=== PATIENT | male | born 1960 | race Caucasian/White ===

== ENCOUNTER → 2018-09-24 | Outpatient (CLI) | payer MEDICAID ==
--- NOTE | 2018-09-24 08:48 | REP ---
CT of the left shoulder: Axial images are acquired helical scanning and a reformatted sagittal and coronal projections: There are no comparisons. There is an impacted fracture at the surgical neck of the humerus with the approximately one fourth shaft width lateral displacement of the humeral head and lateral rotation of the humeral head. There is no dislocation. No clavicle or scapular fracture is identified. There is no coracoid fracture. No fracture. The visualized adjacent ribs. Impression: Impacted fracture at the surgical neck of the humerus as described. Electronically Signed by Carroll Kessler MD 09/24/2018 08:40 A
== END ==
LOC: M RAD 08:08
PROVIDERS: ATTEND Orthopaedic Surgery
DX: S42.222A 2-part displaced fracture of surgical neck of left humerus, initial encounter for closed fracture (principal); X58.XXXA Exposure to other specified factors, initial encounter; Y92.89 Other specified places as the place of occurrence of the external cause

== ENCOUNTER → 2018-10-24 | Outpatient (REF) | payer MEDICAID ==
[2018-10-24 12:42] LABS: APPEARANCE, URINE CLEAR (CLEAR); BACTERIA, URINE AUTO NEGATIVE (NEGATIVE); BILIRUBIN, URINE AUTO NEGATIVE (NEGATIVE); BLOOD, URINE BLOOD NEGATIVE (NEGATIVE); COLOR, URINE YELLOW (YELLOW); GLUCOSE, URINE (UA) AUTO NEGATIVE (NEGATIVE); KETONE, URINE AUTO TRACE mg/dL (NEGATIVE); LEUKOCYTE ESTERASE, URINE AUTO NEGATIVE (NEGATIVE); MUCUS, URINE SMALL (NEGATIVE); NITRITE, URINE AUTO NEGATIVE (NEGATIVE); PROTEIN, URINE AUTO NEGATIVE (NEGATIVE); RBC, URINE AUTO 0 /HPF (0-3); SPECIFIC GRAVITY URINE AUTO 1.015 (1.002-1.035); SQUAMOUS EPITHELIAL CELL UR AU 0 /HPF (0-6); WBC, URINE AUTO 1 /HPF (0-3)
[2018-10-24 19:02] LABS: ALBUMIN 4.3 GM/DL (3.2-5.2); ALT/SGPT 66 U/L (12-78); BILIRUBIN,TOTAL 0.5 MG/DL (0.2-1.0); BLOOD UREA NITROGEN 4 MG/DL (7-18); CARBON DIOXIDE LEVEL 28 MEQ/L (21-32); CHLORIDE LEVEL 95 MEQ/L (98-107); CHOLESTEROL LEVEL 224 MG/DL (<200); CHOLESTEROL RISK RATIO 1.523 (<5); CREATININE FOR GFR 0.76 MG/DL (0.70-1.30); FREE T4 1.06 NG/DL (0.76-1.46); GLOMERULAR FILTRATION RATE > 60.0 (>56); GLUCOSE, FASTING 90 MG/DL (70-100); HDL CHOLESTEROL 147 MG/DL (>40); LDL CHOLESTEROL 64 MG/DL (<100); NON-HDL-C 77 MG/DL; POTASSIUM SERUM 4.5 MEQ/L (3.5-5.1); PROSTATIC SPECIFIC AG MONITOR 8.67 NG/ML (< 4.00); SODIUM LEVEL 130 MEQ/L (136-145); TOTAL PROTEIN 7.5 GM/DL (6.4-8.2); TRIGLYCERIDES LEVEL 67 MG/DL (<150)
[2018-10-24 19:04] LABS: TOTAL 25(OH) VITAMIN D 47.4 NG/ML (30.0-100.0)
[2018-10-24 19:11] LABS: BASO # 0.1 10^3/uL (0.0-0.2); BASO % 1.6 % (0.0-1.0); EOS # 0.1 10^3/uL (0.0-0.50); EOS % 1.6 % (0.0-3.0); HEMATOCRIT 45.5 % (42.0-52.0); HEMOGLOBIN 15.9 g/dl (13.5-17.5); LYMPH % 43.7 % (24.0-44.0); MEAN CORPUSCULAR HEMOGLOBIN 35.2 pg (27.0-33.0); MEAN CORPUSCULAR HGB CONC 34.9 g/dl (32.0-36.5); MEAN CORPUSCULAR VOLUME 100.7 fl (80.0-96.0); MONO # 0.4 10^3/uL (0.0-0.8); MONO % 8.9 % (0.0-5.0); PLATELET COUNT, AUTOMATED 195 10^3/uL (150-450); RED BLOOD COUNT 4.52 10^6/uL (4.30-6.10); WHITE BLOOD COUNT 4.5 10^3/uL (4.0-10.0)
== END ==
LOC: M LAB REF 12:25
PROVIDERS: ATTEND Nurse Practitioner Family
DX: Z13.9 Encounter for screening, unspecified (principal)

== ENCOUNTER 2018-10-30 10:12 | Outpatient (RCR) | payer MEDICAID | END 2018-10-31 | LOC: M PT 10:12 | PROVIDERS: ATTEND Orthopaedic Surgery | DX: S42.202D Unspecified fracture of upper end of left humerus, subsequent encounter for fracture with routine healing (principal) ==

== ENCOUNTER → 2018-11-22 | Outpatient (CLI) | payer OTHER, MEDICAID ==
[2018-11-23 14:50] LABS: PSA % FREE 8.5 % (.); PSA FREE 0.44 ng/mL; PSA TOTAL 5.2 ng/mL (0.0-4.0)
== END ==
LOC: M SMT 11:16
PROVIDERS: ATTEND Urology
DX: R97.20 Elevated prostate specific antigen [PSA] (principal)

== ENCOUNTER 2018-11-27 11:45 | Outpatient (RCR) | payer OTHER | END 2018-12-01 | LOC: M PT 11:45 | PROVIDERS: ATTEND Orthopaedic Surgery | DX: S42.222D 2-part displaced fracture of surgical neck of left humerus, subsequent encounter for fracture with routine healing (principal) ==

== ENCOUNTER → 2018-12-11 | Outpatient (CLI) | payer OTHER ==
--- NOTE | 2018-12-11 12:40 | REP ---
Prostate sonography: History: Elevated PSA. Sonographic findings: Trans rectal prostate sonography demonstrates unremarkable seminal vesicles. Prostate gland is heterogeneously enlarged with calcifications and cystic changes noted. Glandular dimensions are measured at 4.0 x 2.6 x 4.0 cm with a calculated glandular volume of 24.5 ml. Transrectal sonographic guidance is provided to Dr. Mcdaniel who performed trans rectal ultrasound guided needle biopsy procedure . Electronically Signed by Simon Gorman MD 12/11/2018 12:31 P
== END ==
LOC: M SMT PRO 09:48
PROVIDERS: ATTEND Urology
DX: C61 Malignant neoplasm of prostate (principal)
CPT/HCPCS: 76872; 76942; G0416

== ENCOUNTER → 2018-12-28 | Outpatient (CLI) | payer OTHER | LOC: M LAB 10:37 | PROVIDERS: ATTEND Orthopaedic Surgery | DX: E55.9 Vitamin D deficiency, unspecified (principal) ==

== ENCOUNTER → 2019-04-03 | Outpatient (CLI) | payer OTHER ==
[~2019-04-03] MED LIST: METO1TAB32 PO; VITA50005 PO
== END ==
LOC: M LAB 10:54
PROVIDERS: ATTEND Urology
DX: C61 Malignant neoplasm of prostate (principal)

== ENCOUNTER 2019-04-05 20:50 | Inpatient (IN) | payer OTHER ==
[~2019-04-05] VITALS: Ht 193 cm; Wt 73.6 kg
[2019-04-05] MEDS ORDERED: METO1TAB32 PO (21:21)
[2019-04-05] MEDS ORDERED: VITA50005 PO (21:21)
[2019-04-05] MEDS ORDERED: ISOVUE-370 76% 100ML VIAL (Q9967) As Ordered ONE (21:36)
[2019-04-05 21:48] LABS: BASO # 0.1 10^3/uL (0.0-0.2); BASO % 1.5 % (0.0-1.0); EOS # 0.3 10^3/uL (0.0-0.5); EOS % 4.3 % (0.0-3.0); HEMATOCRIT 41.2 % (42.0-52.0); HEMOGLOBIN 14.5 g/dl (13.5-17.5); LYMPH # 3.8 10^3/uL (1.5-5.0); LYMPH % 51.1 % (24.0-44.0); MEAN CORPUSCULAR HEMOGLOBIN 34.4 pg (27.0-33.0); MEAN CORPUSCULAR HGB CONC 35.2 g/dl (32.0-36.5); MEAN CORPUSCULAR VOLUME 97.6 fl (80.0-96.0); MONO # 0.5 10^3/uL (0.0-0.8); MONO % 6.2 % (0.0-5.0); NEUTROPHILS # 2.7 10^3/uL (1.5-8.5); NEUTROPHILS % 36.6 % (36.0-66.0); PLATELET COUNT, AUTOMATED 251 10^3/uL (150-450); RED BLOOD COUNT 4.22 10^6/uL (4.30-6.10); WHITE BLOOD COUNT 7.4 10^3/uL (4.0-10.0)
[2019-04-05] MEDS ORDERED: NS 1,000 ML IV SCH (22:00)
[2019-04-05 22:05] LABS: ALT/SGPT 35 U/L (12-78); BILIRUBIN,DIRECT 0.2 MG/DL (0.0-0.2); BILIRUBIN,TOTAL 0.4 MG/DL (0.2-1.0); BLOOD UREA NITROGEN 4 MG/DL (7-18); CALCIUM LEVEL 9.2 MG/DL (8.5-10.1); CARBON DIOXIDE LEVEL 24 MEQ/L (21-32); CHLORIDE LEVEL 91 MEQ/L (98-107); CPK CREATINE PHOSPHOKINASE 121 U/L (39-308); CREATININE FOR GFR 0.79 MG/DL (0.70-1.30); FREE T4 0.92 NG/DL (0.76-1.46); GLOMERULAR FILTRATION RATE > 60.0 (>56); GLUCOSE, FASTING 161 MG/DL (70-100); LIPASE 380 U/L (73-393); MB/CK RELATIVE INDEX 1.65 (< OR =4); POTASSIUM SERUM 3.7 MEQ/L (3.5-5.1); SODIUM LEVEL 127 MEQ/L (136-145); TOTAL PROTEIN 7.4 GM/DL (6.4-8.2); TROPONIN I < 0.02 NG/ML (< 0.10)
[2019-04-05 22:29] LABS: INR 0.91; PROTHROMBIN TIME 11.9 SECONDS (11.8-14.0)
[2019-04-05 22:30] LABS: PARTIAL THROMBOPLASTIN TIME 32.8 SECONDS (25.0-38.4)
--- NOTE | 2019-04-05 22:47 | REPVR ---
PROCEDURE INFORMATION: Exam: CT Head Without Contrast Exam date and time: 04/05/2019 9:46 PM Age: 58 years old Clinical indication: Syncope and collapse; Additional info: Unresponsive/syncope TECHNIQUE: Imaging protocol: Computed tomography of the head without contrast. Radiation optimization: All CT scans at this facility use at least one of these dose optimization techniques: automated exposure control; mA and/or kV adjustment per patient size (includes targeted exams where dose is matched to clinical indication); or iterative reconstruction. COMPARISON: No relevant prior studies available. FINDINGS: Brain: There is moderate patchy low attenuation of deep white matter for age. There is slight prominence of the peripheral sulci. Ventricles: Normal. No ventriculomegaly. Bones/joints: Unremarkable. No acute fracture. Sinuses: Minimal ethmoid sinus mucosal thickening. Mastoid air cells: Visualized mastoid air cells are well aerated. Soft tissues: Unremarkable. IMPRESSION: 1. Moderate chronic ischemic white matter change and minimal atrophy. 2. Minimal ethmoid sinus disease. 3. Otherwise negative noncontrast head CT. Electronically signed by: Rogers Triplett On 04/05/2019 22:47:01 PM
--- NOTE | 2019-04-05 22:55 | REPVR ---
PROCEDURE INFORMATION: Exam: CT Angiography Chest With Contrast Exam date and time: 04/05/2019 9:46 PM Age: 58 years old Clinical indication: Other: Syncope TECHNIQUE: Imaging protocol: Computed tomographic angiography of the chest with intravenous contrast. 3D rendering: MIP and/or 3D reconstructed images were created by the technologist. Radiation optimization: All CT scans at this facility use at least one of these dose optimization techniques: automated exposure control; mA and/or kV adjustment per patient size (includes targeted exams where dose is matched to clinical indication); or iterative reconstruction. Contrast material: ISOVUE 370; Contrast volume: 75 ml; Contrast route: IV; COMPARISON: CR PORTABLE CHEST X-RAY 04/05/2019 9:09 PM FINDINGS: Pulmonary arteries: The main pulmonary artery measures 24 mm. No pulmonary embolism is identified. Aorta: The ascending thoracic aorta measures 29 mm. Lungs: Slight diffuse interstitial prominence with slight reticular-nodular appearance. There is a right apical cavitation with a wall measuring 2 mm. There is minimal associated stranding around the cavitation. There is a small internal nodule measuring 7 mm within the cavitation. There is mild pulmonary hyperinflation. Pleural space: Unremarkable. No pneumothorax. No pleural effusion. Heart: Unremarkable. No cardiomegaly. No pericardial effusion. Stomach and bowel: Mild distention of the stomach with food material. Lymph nodes: Unremarkable. No enlarged lymph nodes. Bones/joints: Mild degenerative changes of the thoracic spine. Soft tissues: Unremarkable. IMPRESSION: 1. Suggestion of some degree of COPD with slight interstitial prominence with a reticulonodular appearance. 2. Right apical cavitation with some associated stranding which may reflect residua of TB. There is a small internal nodule which may reflect an aspergilloma. 3. There is mild gastric distention with food material which may reflect recent ingestion. Gastric atony or relative outlet obstruction are not excluded. 4. Otherwise negative CTA chest. No pulmonary embolism is identified. Electronically signed by: Rogers Triplett On 04/05/2019 22:55:33 PM
--- NOTE | 2019-04-05 23:59 | HPEPDOC ---
[facility] Medical History & Physical Date of Admission Apr 05, 2019 Date of Service: Apr 05, 2019 Other Provider Leyla HAAS Attending Physician: TR GALVAN MD History and Physical CHIEF COMPLAINT: syncope HISTORY OF PRESENT ILLNESS: Rome Aviles is a 58-year-old male who presented to the emergency department after a syncopal episode earlier this evening. The patient states he was just finishing eating dinner at [facility] when he started to feel unwell. The patient notes feeling lightheaded and does not remember much after that. The patient's brother states that the patient put his head down on the table in stopped responding. The brother then laid the patient flat down on the ground because he was concerned about blood flow to the patient's brain. The brother states that there was an EMT also dining in the restaurant who came over to help and noted that the patient's pulse was weak. The patient regained consciousness while laying on the floor. EMS was called to the scene and brought the patient to the hospital. The brother also notes that the patient lost bowel and bladder continence during this episode. The patient notes he has had multiple other episodes of presyncope and possible syncope over the past 1-2 years. He states that he went to the hospital in [place] sometime this summer after a syncopal episode that occurred when he got up in the middle of the night to use the bathroom. The patient states after he got out of bed he fell and hit his head on a toolbox. The patient notes that after he was evaluated in the hospital in [place] he had an appointment with Dr. Zaidi and completed a 24-hour Holter monitor. Patient states he was told that during the monitor, he was found to have a slow heart rhythm. He states he does not have any follow-up planned with Dr. Zaidi at this time and he is unsure what the plan moving forward is. REVIEW OF SYSTEMS: CONSTITUTIONAL: Denies fevers, chills, night sweats, fatigue, unexpected change in weight. HEENT: Denies change in vision, change in hearing. CARDIOVASCULAR: Endorses episodes of lightheadedness. Denies chest pain, palpitations, shortness of breath. RESPIRATORY: Denies dyspnea, cough, wheezing. GASTROINTESTINAL: Denies nausea, vomiting, abdominal pain, diarrhea, constipation, blood in stool. GENITOURINARY: Denies dysuria, urinary frequency, urinary urgency. SKIN: Endorses skin dryness MUSCULOSKELETAL: Endorses generalized joint pains which are stable and not worsening NEUROLOGICAL: Endorses numbness in the left lateral thigh down to his toes. Denies headache, dizziness, weakness. LYMPHATIC: Denies lymphadenopathy HEMATOLOGIC: Denies easy bruising PSYCHIATRIC: Denies change in mood. PAST MEDICAL HISTORY: 1. Prostate cancer, recently diagnosed, follows with Dr. Mcdaniel 2. Hypertension 3. Vitamin D deficiency 4. Left arm fracture and torn biceps tendon PAST SURGICAL HISTORY: 1. Multiple orthopedic surgeries, which the patient struggles to recall SOCIAL HISTORY: Current smoker, average 1 pack per day for 45 years, 40-50 year pack history. States he drinks alcohol a few days a week but cannot quantify how many drinks he has in a day when drinking FAMILY HISTORY: Father: Unspecified heart disease, hypertension Mother: Diabetes mellitus ALLERGIES: Please see below. HOME MEDICATIONS: Please see below. PHYSICAL EXAMINATION: VITAL SIGNS: See below GENERAL: Alert, comfortable, in no acute distress HEENT: Normocephalic, atraumatic, PERRLA, EOMI, moist mucous membranes NECK: Supple, trachea midline, no lymphadenopathy, no JVD CARDIOVASCULAR: Regular rate and rhythm, normal S1 and S2. Systolic ejection murmur 2/6 heard over the right upper sternal border RESPIRATORY: Clear to auscultation bilaterally with equal air entry bilaterally. No wheezing, rhonchi, or rales. ABDOMEN: Soft, nontender, nondistended, bowel sounds present, no masses or hepatosplenomegaly appreciated EXTREMITIES: No cyanosis or edema. Capillary refill less than 2 seconds. Pulses 2+/4 in bilateral upper and lower extremities SKIN: Dry scaling skin NEUROLOGIC: Alert and oriented 3 to person, place and time. Cranial nerves 2-12 grossly intact. Weakness noted in the left upper extremity secondary to pain from left arm fracture. Decreased sensation on the left lower extremity compared to the right lower extremity. No other focal deficits appreciated. PSYCHIATRIC: Mood and affect appropriate LABORATORY DATA: See below. IMAGING: - CXR: No radiology report available - Head CT: 1. Moderate chronic ischemic white matter change and minimal atrophy. 2. Minimal ethmoid sinus disease. 3. Otherwise negative noncontrast head CT. - CTA chest: 1. Suggestion of some degree of COPD with slight interstitial prominence with a reticulonodular appearance. 2. Right apical cavitation with some associated stranding which may reflect residua of TB. There is a small internal nodule which may reflect an aspergilloma. 3. There is mild gastric distention with food material which may reflect recent ingestion. Gastric atony or relative outlet obstruction are not excluded. 4. Otherwise negative CTA chest. No pulmonary embolism is identified. MICROBIOLOGY: Please see below. ASSESSMENT/PLAN: 58-year-old male who presents after syncopal episode, admitted for further evaluation and treatment of syncope and hyponatremia 1. Transient loss of consciousness Possible cardiovascular syncope: Echocardiogram ordered. May have history of bradycardic episodes, telemetry monitoring while inpatient. Orthostatic VS q4h Possible neurogenic syncope: CT head negative, MRI brain ordered. Neuro checks q4h Possible seizure: Pro calcitonin ordered. Consider EEG No related trauma. No evidence of hypoglycemia. EtOH level 0.219 could explain his syncope, will also check a urine tox screen 2. Hyponatremia. Check serum osmolality, urine osmolality, and urine sodium levels. IV fluid resuscitation, monitor BMP 3. Cavitary lung lesion. No evidence of current pneumonia, denies pulmonary symptoms. Possible source TB vs fungal. QuantiFERON gold and fungal smear/culture ordered. Airborne precaution 4. Hypertension. Hold home metoprolol in the setting of possible history of bradycardic episodes. Monitor patient's blood pressure and consider starting a calcium channel magda or IKE inhibitor if he is hypertensive 5. Vitamin D deficiency On weekly supplementation at home. Recheck vitamin D level 6. Prostate cancer. Recent diagnosis, no treatment initiated at this point -Outpatient management by Dr. Mcdaniel 7. Alcohol use Patient denies excessive use of alcohol, EtOH level 0.219 Will also check urine tox screen [facility] protocol DVT prophylaxis: SC Lovenox Disposition: likely home after more than 2 midnights Vital Signs Vital Signs Date Time Temp Pulse Resp B/P (MAP) Pulse Ox O2 Delivery O2 Flow Rate FiO2 04/05/19 23:30 66 14 95/51 (66) 96 Room Air 04/05/19 21:21 97.9 Laboratory Data Labs 24H Laboratory Tests 2 04/05/19 20:53: Immature Granulocyte % (Auto) 0.3, Neutrophils (%) (Auto) 36.6, Lymphocytes (%) (Auto) 51.1H, Monocytes (%) (Auto) 6.2H, Eosinophils (%) (Auto) 4.3H, Basophils (%) (Auto) 1.5H, Neutrophils # (Auto) 2.7, Lymphocytes # (Auto) 3.8, Monocytes # (Auto) 0.5, Eosinophils # (Auto) 0.3, Basophils # (Auto) 0.1, Nucleated Red Blood Cells % (auto) 0.0, Prothrombin Time 11.9, Prothromb Time International Ratio 0.91, Activated Partial Thromboplast Time 32.8, Anion Gap 12, Glomerular Filtration Rate > 60.0, Calcium Level 9.2, Total Bilirubin 0.4, Direct Bilirubin 0.2, Aspartate Amino Transf (AST/SGOT) 38H, Alanine Aminotransferase (ALT/SGPT) 35, Alkaline Phosphatase 72, Total Creatine Kinase 121, Creatine Kinase MB 2.0, Creatine Kinase MB Relative Index 1.65, Troponin I < 0.02, Total Protein 7.4, Albumin 4.0, Albumin/Globulin Ratio 1.18, Lipase 380, Thyroid Stimulating Hormone (TSH) 3.210, Free Thyroxine 0.92 04/05/19 21:15: POC pH (Misc Panel) 7.370, POC Base Excess (Misc Panel) -3.0L, POC Saturated Percent O2 (Misc) 97, POC pO2 (Misc Panel) 90.0, POC pCO2 (Misc Panel) 38.1, POC HCO3 (Misc Panel) 22.1, POC Total CO2 (Misc Panel) 23.0 04/05/19 21:28: POC Total CO2 (Misc Panel) 23.0, POC Glucose (Misc Panel) 165H, POC Sodium (Misc Panel) 125L, POC Potassium (Misc Panel) 3.6, POC Chloride (Misc Panel) 88L, POC Blood Urea Nitrogen (Misc Panel 4L, POC Ionized Calcium (Misc Panel) 4.6, POC Creatinine (Misc Panel) 1.2, POC Hematocrit (Misc Panel) 44.0 CBC/BMP Laboratory Tests 04/05/19 20:53 Home Medications Scheduled Ergocalciferol (Vitamin D2) (Vitamin D2) 50,000 Units Cap, 50,000 UNITS PO 1XWK Metoprolol Succinate (Metoprolol Succinate) 25 Mg Tab.er.24h, 25 MG PO DAILY Allergies Coded Allergies: No Known Allergies (Unverified , 04/05/19) A-FIB/CHADSVASC A-FIB History Current/History of A-Fib/PAF?: No GME ATTESTATION GME ATTESTATION My faculty preceptor for this patient encounter was physically present during the encounter and was fully available. All aspects of the patient interview, examination, medical decision making process, and medical care plan development were reviewed and approved by the faculty preceptor. The faculty preceptor is aware and concurs with the plan as stated in the body of this note and will attest to such by his/her cosignature. ATTENDING NOTE I examined , reviewed and edited 's note and agree with the findings as documented. MERLY KC D.O. Apr 05, 2019 23:59 TR GALVAN MD Apr 07, 2019 03:17
[2019-04-06] MEDS ORDERED: ACETAMINOPHEN TAB 650MG DOSE (2X325MG) PO PRN (00:15)
[2019-04-06] MEDS ORDERED: MOM 30ML SUSPENSION UDC PO PRN (00:15)
[2019-04-06] MEDS ORDERED: MAALOX 30 ML SUSP *UDC PO PRN (00:15)
[2019-04-06 00:31] LABS: OSMOLALITY SERUM 314 MOSM/KG (275-295)
[2019-04-06 02:38] LABS: ETHYL ALCOHOL (ETHANOL) 0.219 % (0.000-0.010)
[2019-04-06] MEDS ORDERED: LORazepam 2 MG TAB PO PRN (03:45)
[2019-04-06] MEDS: THIAMINE 100 MG TAB PO SCH ×2 (04:51→23:11)
[2019-04-06 07:35] LABS: HEMATOCRIT 38.4 % (42.0-52.0); HEMOGLOBIN 13.7 g/dl (13.5-17.5); MEAN CORPUSCULAR HEMOGLOBIN 34.3 pg (27.0-33.0); MEAN CORPUSCULAR HGB CONC 35.7 g/dl (32.0-36.5); PLATELET COUNT, AUTOMATED 237 10^3/uL (150-450); WHITE BLOOD COUNT 5.3 10^3/uL (4.0-10.0)
[2019-04-06 08:12] LABS: HEMOGLOBIN A1c 5.1 %
[2019-04-06 08:16] LABS: BLOOD UREA NITROGEN 11 MG/DL (7-18); CARBON DIOXIDE LEVEL 25 MEQ/L (21-32); CHLORIDE LEVEL 100 MEQ/L (98-107); CREATININE FOR GFR 0.74 MG/DL (0.70-1.30); GLOMERULAR FILTRATION RATE > 60.0 (>56); GLUCOSE, FASTING 92 MG/DL (70-100); SODIUM LEVEL 132 MEQ/L (136-145)
[2019-04-06] MEDS ORDERED: METOPROLOL SUCC *XL* 25MG TAB (TopROL *XL*) PO SCH (09:00)
--- NOTE | 2019-04-06 09:04 | ECGEPIP ---
[facility] - ED Test Date: 2019-04-05 Pat Name: FEDERICO FITZGERALD Department: Room: 01[facility] Gender: Male Biology Professor: JAYA : 1960 Requested By: LAURENT Sotelo Order Number: [id number] Reading MD: Silvestre Steiner Measurements Intervals [place] Rate: 63 P: -37 AK: 201 QRS: 69 QRSD: 111 T: 65 QT: 407 QTc: 418 Interpretive Statements SINUS RHYTHM MODERATE INTRAVENTRICULAR CONDUCTION DELAY NSTTW ABNORMALITIES NO PRIORS FOR COMPARISON Electronically Signed on 04-06-2019 9:04:10 EST by Silvestre Steiner
--- NOTE | 2019-04-06 09:15 | REP ---
PORTABLE CHEST X-RAY: Two views. HISTORY: Chest pain. No comparison chest x-ray. FINDINGS: EKG monitoring electrodes overlie the chest. The pleural angles are sharp. Heart is not enlarged. No hilar or mediastinal mass is seen. There is heterogeneous density in the right lung apex which may be a cavitary lesion. Lung pearson are otherwise clear. This opacity measures 3.4 cm. IMPRESSION: Suspect a cavitary opacity right apex 3.4 cm in greatest diameter. Otherwise no acute disease seen. Electronically Signed by Simon Gorman MD 04/06/2019 09:31 A
--- NOTE | 2019-04-06 10:14 | REP ---
MRI BRAIN WITHOUT CONTRAST: HISTORY: Syncope. History of prostate CA. Comparison head CT April 05, 2019. No comparison MRI study. TECHNIQUE: Axial and sagittal imaging planes are utilized for T1- and T2-weighted scans. Sequences include spin-echo, fast spin echo, FLAIR, and diffusion weighted sequences. FINDINGS: No bony calvarial lesion is seen. Craniocervical junction and upper cervical cord are normal in appearance. Diffusion weighted scans show no evidence to suggest acute ischemia. There is no intracranial hemorrhage. There is partial opacification of the ethmoid sinuses bilaterally. No intraorbital abnormality is seen. On T2-weighted scans and FLAIR images, there are multifocal T2 hyperintensities in the subcortical and periventricular white matter consistent with either extensive small vessel changes or possibly demyelinating lesions. There are mild decreased T1 signal intensity changes with a few of these foci. I suspect a tiny lacunar infarct in the basal ganglia on the right. This appears to be old. There is no evidence of mass, cortical infarction, or midline shift. No extra-axial fluid collection is seen. IMPRESSION: Fairly extensive pattern of multifocal supratentorial T2 hyperintensity pattern in the subcortical and periventricular white matter. This is nonspecific. Extensive small vessel changes versus demyelinating disease. No acute intracranial abnormality is seen. A tiny old basal ganglia lacunar infarct is suspected on the right. Electronically Signed by Simon Gorman MD 04/06/2019 11:02 A
[2019-04-06 10:15] LABS: BLOOD UREA NITROGEN 11 MG/DL (7-18); CALCIUM LEVEL 9.2 MG/DL (8.5-10.1); CARBON DIOXIDE LEVEL 27 MEQ/L (21-32); CHLORIDE LEVEL 99 MEQ/L (98-107); CREATININE FOR GFR 0.82 MG/DL (0.70-1.30); GLOMERULAR FILTRATION RATE > 60.0 (>56); GLUCOSE, FASTING 100 MG/DL (70-100); POTASSIUM SERUM 5.3 MEQ/L (3.5-5.1); SODIUM LEVEL 133 MEQ/L (136-145)
[2019-04-06] MEDS: FOLIC ACID 1 MG TAB PO SCH (10:46)
[2019-04-06] MEDS: MULTIVITAMINS/MINERALS THERAP 1 TAB PO SCH (10:47)
[2019-04-06] MEDS: ENOXAPARIN 40 MG/0.4 ML SYRINGE (J1650) SC SCH (10:47)
[2019-04-06] MEDS ORDERED: SODIUM CHLORIDE HYPERTONIC 3% 15ML NEB SOL INH ONE (11:15)
[2019-04-06 13:53] VITALS: BP 158/80
[2019-04-06 14:00] VITALS: BP 158/80
--- NOTE | 2019-04-06 15:16 | CR ---
DATE OF CONSULTATION: 04/06/2019 HISTORY OF PRESENT ILLNESS: Mr. Aviles is a 58-year-old male with a past medical history of prostate cancer, hypertension, who presented initially with a syncopal episode. Patient was at a restaurant when he started noticing lightheadedness and then apparently does not remember much after that. Patient reportedly was noted by his brother to be unresponsive. He was laid down on the floor and later gained consciousness while laying on the floor. He was also found to have urinary and bowel incontinence during this episode. Patient reports he has had other episodes of syncope as well as presyncope with lightheadedness for the past year or two. He had previously been evaluated [facility] after a syncopal episode as well as being evaluated as an outpatient with cardiology. Patient was told to keep a log of his syncopal episodes, which he has at home. He reports his last episode was some time ago. He did have a Holter monitor done as part of his evaluation and he was found to have a slow heart rhythm. He denies any other history of any lung disease that he knows of. Has never been on any inhalers in the past. The patient is a smoker; however he does smoke one pack a day for the past 45 years. He has never followed up with a shopper marketing manager in the past and he denies knowing any previous history of any lung disease. Patient denies any exposure to tuberculosis or anybody with a history of tuberculosis. He was previously incarcerated, although this was 20 years ago. He does feel that he may have had a PPD in the past which was negative, although again, this was possibly 15 years ago. He denies any recent sick contacts or recent travel outside of the [place] last travel outside of the [place] was as many years ago and he had gone to [place] and [place], but no other countries. Patient denies noticing any fevers or chills. He denies any recent weight loss or worsening night sweats. He does have a history of chronic sweating at night time, which he says is due to him turning up the heat in his room as well as wearing many blankets and he does not feel that these night sweats have changed. Patient does note a cough in the past few weeks productive of thick white sputum. He has not noticed any hemoptysis and he denies having any worsening shortness of breath or dyspnea and no wheezing. PAST MEDICAL/SURGICAL HISTORY: 1. Prostate cancer, following up with urology. 2. Hypertension. 3. Vitamin D deficiency. 4. Left arm fracture and torn biceps tendon. 5. Multiple orthopedic surgeries. FAMILY HISTORY: Father with hypertension and heart disease. Mother with diabetes. SOCIAL HISTORY: Current active smoker, one pack a day for 45 years. Had previously tried nicotine patch but was unable to quit smoking. Patient drinks beer, he says three to four at a time, a few days a week. HOME MEDICATIONS: - vitamin D - metoprolol ALLERGIES: No known drug allergies. VITAL SIGNS: Temperature 96.7, pulse 70, respirations 18, blood pressure 126/64, oxygen saturation 93-96% on room air. GENERAL: Patient is lying in bed, does not appear to be any acute distress, is able to speak in complete sentences and is not using any accessory muscles of respiration. HEENT: Normocephalic, atraumatic. Pupils are equal and reactive to light bilaterally. There is moist mucous membranes. Neck is supple. The trachea is midline. No palpable adenopathy and no jugular venous distention (JVD). Patient does have some papular lesions on the face and some comedones. CARDIOVASCULAR: Regular rate and rhythm. Normal S1, S2. There is a faint systolic murmur auscultated over the right upper sternal border. RESPIRATORY: Coarse breath sounds in the right upper lobe but no significant wheezing, rhonchi or rales. ABDOMEN: Soft, nontender, nondistended. No palpable masses. EXTREMITIES: No lower extremity edema noted bilaterally. No clubbing or cyanosis. There is chronic weakness in the left upper extremity secondary to his previous history of left arm fracture. LABORATORY DATA; WBC 5.3, hemoglobin 13.7, platelets are 231. Chemistry: Sodium is 133, potassium is 5.3, chloride is 99, bicarbonate is 27, BUN is 11, creatinine is 0.82, glucose is 100. INR 0.91. Alcohol level 0.219. Arterial blood gas (ABG) pH is 7.370, pCO2 of 38.1 and pO2 of 97. MICROBIOLOGY: Sputum acid-fast bacillus (AFB) and QuantiFERON Gold pending. IMAGING STUDIES: CT angiogram 04/05/2019 - no evidence of pulmonary embolism (PE). There are some slight interstitial reticular nodular markings noted, mostly in the right upper lobe, and a very minimal degree in the left upper lobe. There is a right apical cavitary lesion with some stranding associated around the cavity. There is a small nodule within the cavity representing a possible aspergilloma. There is no significant mediastinal adenopathy. The stomach appears distended with food material. MRI of brain 04/06/2019 - fairly extensive pattern of multifocal supratentorial T2 hyperintensity pattern in the subcortical and periventricular white matter which is nonspecific. May represent extensive small vessel changes versus demyelinating disease. 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 ASSESSMENT AND PLAN: Mr. Aviles is a 58-year-old male with a history of prostate cancer and hypertension who presented after a syncopal episode. Patient had a CT angiogram done for evaluation for a possible PE, which was negative for PE as part of his syncope workup. 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 Patient denied having any fevers or chills or weight loss or worsening night sweats. He denies a previous exposure to tuberculosis and denies previous history of any lung disease. Patient does appear to have possible alcohol abuse history and he did have an incarceration, although this was 20 years ago. Given the findings on imaging, there is suspicion for tuberculosis or possible fungal cavitary lesion. Patient is also a current active smoker with more than 40 pack year history and malignancy is also in the differential. Discussed with the patient his CT findings and the possible differential at this time including infectious etiology such as tuberculosis or atypical fungal organism versus possible malignancy. Patient does have a QuantiFERON Gold, which is pending, as well as a sputum AFB, which is pending. - Patient will need a sputum AFB x3 and we will also check a sputum culture for any fungal organisms and other regular bacteria. - Will follow up the results of his QuantiFERON Gold. If his QuantiFERON and sputum are negative, we discussed that he will need bronchoscopy with bronchoalveolar lavage (BAL), as well as potential biopsy, as malignancy is also in the differential. - After discussing the results of the imaging with the patient, patient appeared to be in denial of the possibility of tuberculosis or even malignancy, as he kept stating that he has had previous imaging in the past and no one had never mentioned any lung lesions in the past to him. Patient was adamant about leaving tomorrow and signing against medical advice (AMA) if he is not discharged. We did discuss that with the concern for possible active tuberculosis, that this is a potential health risk and he would need evaluation with the [facility]. - DVT prophylaxis. Lovenox. - FULL CODE. MTDD
[2019-04-06 16:00] VITALS: BP_SYST 102; BP_SYST 120; BP_SYST 138; BP_DIAS 50; BP_DIAS 60; BP_DIAS 72; BP_DIAS 74
[2019-04-06 20:00] VITALS: BP_SYST 108; BP_SYST 130; BP_SYST 96; BP_DIAS 56; BP_DIAS 58; BP_DIAS 60
--- NOTE | 2019-04-06 22:18 | IPNPDOC ---
Date Seen The patient was seen on 04/06/19. Progress Note SUBJECTIVE: 58 y.o male w/ PMH of Prostate Ca & HTN presented to the ED after syncopal episode who was incidentally found to have RUL cavitary lesion. Patient seen in the morning, remains in the ED awaiting bed, comfortable, without any complaints at this time. He reports having a CT chest within the past year, denies being told of this lesion at that time. He denies any fever, chills, night sweats or weight loss, he was imprisoned over 20 years ago, denies any travel or contact with someone who has travel abroad. He is an active smoker, denies previous history of lung disease. He denies any SOB, CP, N/V/D or abdominal pain. 10 point review of system is negative except for above. OBJECTIVE PHYSICAL EXAMINATION: VITAL SIGNS: Please see below. GENERAL: no distress HEENT: moist mucous membranes CARDIOVASCULAR: S1, S2, no murmurs RESPIRATORY: clear to auscultation, diminished breath sounds ABDOMINAL: soft, non-tender, non-distended, +BS EXTREMITIES: ROM intact NEUROLOGICAL: no focal deficits PSYCHOLOGICAL: calm & cooperative LABORATORY DATA, IMAGING STUDIES, MICROBIOLOGY: Please see below. DVT prophylaxis ordered?: Yes ASSESSMENT AND PLAN: 58 y.o male w/ PMH of Prostate Ca & HTN admitted for syncope & found to have RUL cavitary lesion on CT. PROBLEMS: 1. Cavitary lung lesion - Aspergilloma vs TB vs malignancy, airborne precautions, Quantiferon gold & AFB smear x3 pending, Pulm consulted, active [facility] smoker. 2. Hyponatremia - ?beer potomania, urine studies pending, sodium is overcorrecting, NS discontinued, started 1/2 NS @ 150 ml/hr. Will monitor sodium and adjust IV fluids as needed. - Potassium rising w/ positive orthostatics, will check AM cortisol. 3. Syncope - Orthostatic positive, will provide IV fluid resuscitation w/ 1/2 NS @ 150 ml/hr. TTE pending. 4. HTN - Orthostatic positive at this time, hold metoprolol for now. DVT Prophylaxis - Lovenox GI Prophylaxis - not needed at this time VS, I&O, 24H, Fishbone Vital Signs/I&O Vital Signs Date Time Temp Pulse Resp B/P (MAP) Pulse Ox O2 Delivery O2 Flow Rate FiO2 1/4/20 20:00 68 130/58 (82) 74 108/60 (76) 82 96/56 (69) 04/06/19 20:00 96.9 16 96 Room Air Laboratory Data 24H LABS Laboratory Tests 2 04/06/19 07:23: Nucleated Red Blood Cells % (auto) 0.0, Anion Gap 7L, Glomerular Filtration Rate > 60.0, Estimated Mean Plasma Glucose 100, Hemoglobin A1c 5.1, Calcium Level 9.0, Magnesium Level 2.0 04/06/19 09:45: Anion Gap 7L, Glomerular Filtration Rate > 60.0, Calcium Level 9.2 CBC/BMP Laboratory Tests 04/06/19 07:23 04/06/19 09:45 Microbiology Microbiology 04/06/19 Acid Fast Stain - Final, Resulted 04/06/19 Mycobacterial Culture, Resulted Pending RUBEN CANAS MD Apr 06, 2019 22:18
[2019-04-06] MEDS: NS 0.45% 1,000 ML IV SCH (23:11)
[2019-04-07] VITALS (7 sets, daily range): BP systolic 110–160; BP diastolic 50–87
[2019-04-07] MEDS ORDERED: SODIUM CHLORIDE HYPERTONIC 3% 15ML NEB SOL INH PRN (01:00)
[2019-04-07] MEDS: NS 0.45% 1,000 ML IV SCH (06:01)
[2019-04-07 06:03] LABS: HEMATOCRIT 36.6 % (42.0-52.0); HEMOGLOBIN 13.1 g/dl (13.5-17.5); MEAN CORPUSCULAR HEMOGLOBIN 35.3 pg (27.0-33.0); MEAN CORPUSCULAR HGB CONC 35.8 g/dl (32.0-36.5); MEAN CORPUSCULAR VOLUME 98.7 fl (80.0-96.0); PLATELET COUNT, AUTOMATED 229 10^3/uL (150-450); RED BLOOD COUNT 3.71 10^6/uL (4.30-6.10); WHITE BLOOD COUNT 6.8 10^3/uL (4.0-10.0)
[2019-04-07] MEDS: ALBUTEROL SULFATE 2.5 MG/0.5 ML INH NEB SOLN NEB PRN ×2 (07:41→19:54)
[2019-04-07 08:13] LABS: ALBUMIN 3.4 GM/DL (3.2-5.2); ALT/SGPT 28 U/L (12-78); BILIRUBIN,TOTAL 0.9 MG/DL (0.2-1.0); BLOOD UREA NITROGEN 12 MG/DL (7-18); CALCIUM LEVEL 8.9 MG/DL (8.5-10.1); CARBON DIOXIDE LEVEL 28 MEQ/L (21-32); CHLORIDE LEVEL 100 MEQ/L (98-107); CREATININE FOR GFR 0.88 MG/DL (0.70-1.30); GLOMERULAR FILTRATION RATE > 60.0 (>56); GLUCOSE, FASTING 88 MG/DL (70-100); PHOSPHORUS LEVEL 3.9 MG/DL (2.5-4.9); POTASSIUM SERUM 4.1 MEQ/L (3.5-5.1); SODIUM LEVEL 135 MEQ/L (136-145); TOTAL PROTEIN 6.3 GM/DL (6.4-8.2)
[2019-04-07] MEDS: MULTIVITAMINS/MINERALS THERAP 1 TAB PO SCH (10:33)
[2019-04-07] MEDS: ENOXAPARIN 40 MG/0.4 ML SYRINGE (J1650) SC SCH (10:33)
[2019-04-07] MEDS: THIAMINE 100 MG TAB PO SCH ×2 (10:33→20:13)
[2019-04-07] MEDS: FOLIC ACID 1 MG TAB PO SCH (10:33)
[2019-04-07] MEDS: NS 1,000 ML IV SCH ×2 (10:53→20:13)
--- NOTE | 2019-04-07 20:09 | IPNPDOC ---
Date Seen The patient was seen on 04/07/19. Progress Note SUBJECTIVE: 58 y.o male w/ PMH of Prostate Ca & HTN presented to the ED after syncopal episode who was incidentally found to have RUL cavitary lesion. Patient seen in the morning, remains in the ED awaiting bed, comfortable, without any complaints at this time. He reports having a CT chest within the past year, denies being told of this lesion at that time. He denies any fever, chills, night sweats or weight loss, he was imprisoned over 20 years ago, denies any travel or contact with someone who has travel abroad. He is an active smoker, denies previous history of lung disease. He denies any SOB, CP, N/V/D or abdominal pain. 04/07/19 Patient comfortable in bed, a symptomatic, denies any shortness of breath, cough, chills or sweats. He has no complaints at this time, was orthostatic positive in the morning, on IV fluids. 10 point review of system is negative except for above. OBJECTIVE PHYSICAL EXAMINATION: VITAL SIGNS: Please see below. GENERAL: no distress HEENT: moist mucous membranes CARDIOVASCULAR: S1, S2, no murmurs RESPIRATORY: clear to auscultation, diminished breath sounds ABDOMINAL: soft, non-tender, non-distended, +BS EXTREMITIES: ROM intact NEUROLOGICAL: no focal deficits PSYCHOLOGICAL: calm & cooperative LABORATORY DATA, IMAGING STUDIES, MICROBIOLOGY: Please see below. DVT prophylaxis ordered?: Yes ASSESSMENT AND PLAN: 58 y.o male w/ PMH of Prostate Ca & HTN admitted for syncope & found to have RUL cavitary lesion on CT. PROBLEMS: 1. Cavitary lung lesion - Aspergilloma vs TB vs malignancy, airborne precautions, Quantiferon gold ending & AFB smear negative 2, repeat tomorrow, Pulm following, plan for bronchoscopy tomorrow, nothing by mouth after midnight. 2. Hyponatremia - ?beer potomania, was treated with 1/2 NS @ 150 ml/hr and sodium correction rate has since been adequate. Switched IV fluids to normal saline now. 3. Syncope - Orthostatic positive, treated with IV fluids, TTE pending. 4. HTN - hold metoprolol for today DVT Prophylaxis - Lovenox GI Prophylaxis - not needed at this time VS, I&O, 24H, Fishbone Vital Signs/I&O Vital Signs Date Time Temp Pulse Resp B/P (MAP) Pulse Ox O2 Delivery O2 Flow Rate FiO2 04/07/19 17:00 98.0 64 16 145/79 (101) 98 Room Air I&O- Last 24 Hours up to 6 AM 04/07/19 06:00 Intake Total 2546 ml Output Total 1725 ml Balance 821 ml Laboratory Data 24H LABS Laboratory Tests 2 04/07/19 05:35: Nucleated Red Blood Cells % (auto) 0.0, Anion Gap 7L, Glomerular Filtration Rate > 60.0, Calcium Level 8.9, Phosphorus Level 3.9, Magnesium Level 2.0, Total Bilirubin 0.9#, Aspartate Amino Transf (AST/SGOT) 27, Alanine Aminotransferase (ALT/SGPT) 28, Alkaline Phosphatase 64, Total Protein 6.3L, Albumin 3.4, Albumin/Globulin Ratio 1.17 CBC/BMP Laboratory Tests 04/07/19 05:35 Microbiology Microbiology 04/07/19 Acid Fast Stain - Final, Resulted 04/07/19 Mycobacterial Culture, Resulted Pending 04/06/19 Gram Stain - Final, Resulted 04/06/19 Sputum Culture, Resulted Pending 04/06/19 Acid Fast Stain - Final, Resulted 04/06/19 Mycobacterial Culture, Resulted Pending 04/06/19 Acid Fast Stain - Final, Resulted 04/06/19 Mycobacterial Culture, Resulted Pending RUBEN CANAS MD Apr 07, 2019 19:35
[2019-04-08] VITALS (12 sets, daily range): BP systolic 133–164; BP diastolic 69–93
[2019-04-08 06:55] LABS: HEMATOCRIT 35.7 % (42.0-52.0); HEMOGLOBIN 12.4 g/dl (13.5-17.5); MEAN CORPUSCULAR HEMOGLOBIN 34.9 pg (27.0-33.0); MEAN CORPUSCULAR HGB CONC 34.7 g/dl (32.0-36.5); MEAN CORPUSCULAR VOLUME 100.6 fl (80.0-96.0); PLATELET COUNT, AUTOMATED 222 10^3/uL (150-450); RED BLOOD COUNT 3.55 10^6/uL (4.30-6.10); WHITE BLOOD COUNT 6.3 10^3/uL (4.0-10.0)
--- NOTE | 2019-04-08 07:06 | IPN ---
DATE: 04/07/2019 The patient was seen and examined this morning during bedside rounds. He denies any complaints currently. He denies having any increased cough. No shortness of breath or dyspnea. He denies noticing any further lightheadedness or dizziness and has not had any syncopal episodes since being admitted. He denies any chest pain. No fevers or chills. The patient denies any abdominal pain. No nausea or vomiting. Has not had any diarrhea. PHYSICAL EXAMINATION: Temperature 97.3, pulse 69, respirations 16, blood pressure 146/72, O2 sat 97% on room air. GENERAL: The patient is lying in bed, does not appear to be in any acute distress, is able to speak in complete sentences, and is not using any accessory muscles for respiration. HEENT: Normocephalic, atraumatic. Pupils are equal, reactive to light bilaterally. There is moist mucous membranes. Neck is supple. Trachea is midline. There is no palpable cervical adenopathy and no jugular venous distention (JVD) . CARDIOVASCULAR: Regular rate and rhythm. Normal S1-S2. There is a faint systolic murmur auscultated over the right upper sternal border. RESPIRATORY: There are her few coarse breath sounds in the right upper lobe, but no significant wheezing, rhonchi or rales. ABDOMEN: Soft, nontender, nondistended. No palpable masses. EXTREMITIES: No lower extremity noted bilaterally. There is chronic weakness in the left upper extremity secondary to previous history of left arm fracture. LABORATORIES: WBC 6.8, hemoglobin 13.1, platelets of 229. Chemistry: Sodium is 135, potassium 4.1, chloride is 100, bicarb is 28, BUN 12, creatinine 0.88, glucose of 88. Sputum AFB stain is negative. HIV and QuantiFERON Gold results are pending. ASSESSMENT/PLAN: Mr. Aviles is a 58-year-old male with history of prostate cancer and hypertension who presented after a syncopal episode. He has a CT angiogram done for evaluation, which was negative for pulmonary embolism (PE), but was noted to have an incidental right apical cavitary lesion with a more focal nodular opacity within it suggestive of possible aspergilloma. The patient denies previous history of tuberculosis and previous history of any lung disease. He does appear to have a possible history of alcohol abuse as well as a previous incarceration 20 years ago. The patient denies having any significant shortness of breath, although he does have a cough that he has noticed for the past few weeks. He has not had any hemoptysis and he denies any fevers or chills. He does have some night sweats, which he says is chronic. Discussed with the patient the results of his imaging and that there is suspicion for possible tuberculosis as well as possible aspergilloma and fungal cavitary lesion. Given his smoking history there is also concern for malignancy as well in the differential. - The patient has a QuantiFERON Gold which is still pending. As it can take up to 7 days, would consider placing a PPD for now for evaluation for possible TB. - Will continue to followup results of his sputum AFB. The patient has been getting hypertonic saline nebs to help with induction of his sputum, but does still have difficulty producing good quality sputum samples. We did discuss that even if his sputum AFB is negative, this does not rule out tuberculosis as the quality of the sample effects the results greatly - If the patient were found to have positive QuantiFERON and negative sputum AFB, he would still need bronchoscopy with BAL to more effectively rule out active TB. Otherwise he would need to be treated for latent tuberculosis. If he has negative AFB and QuantiFERON, then he would need bronchoscopy with biopsy to evaluate for potential malignancy. Therefore, as it appears he will likely need bronchoscopy regardless, we discussed consent for electromagnetic navigational bronchoscopy with biopsy as well as BAL. The patient is agreeable to the procedure. He previously had discussed signing out AMA, but he appears to be more amenable now to staying for complete workup. - Will make the patient n.p.o. after midnight. He will be added onto the OR procedure case for tomorrow, although we do not have a definite time for his bronchoscopy. - Continue with airborne precautions. Deep vein thrombosis (DVT) prophylaxis with Lovenox. Will hold for the day of procedure. FULL CODE. MTDD
[2019-04-08 07:11] LABS: BLOOD UREA NITROGEN 12 MG/DL (7-18); CALCIUM LEVEL 8.7 MG/DL (8.5-10.1); CARBON DIOXIDE LEVEL 26 MEQ/L (21-32); CHLORIDE LEVEL 104 MEQ/L (98-107); CREATININE FOR GFR 0.72 MG/DL (0.70-1.30); GLOMERULAR FILTRATION RATE > 60.0 (>56); GLUCOSE, FASTING 86 MG/DL (70-100); POTASSIUM SERUM 4.2 MEQ/L (3.5-5.1); SODIUM LEVEL 137 MEQ/L (136-145)
[2019-04-08 08:48] LABS: PROLACTIN 7.5 NG/ML (2.1-17.7); TOTAL 25(OH) VITAMIN D 102.8 NG/ML (30.0-100.0)
[2019-04-08] MEDS: ENOXAPARIN 40 MG/0.4 ML SYRINGE (J1650) SC SCH (09:00)
[2019-04-08] MEDS ORDERED: LIDOCAINE VISCOUS 2% SOLN 15ML UDC As Ordered ONE (09:33)
[2019-04-08] MEDS ORDERED: EPINEPHrine 1MG/10ML SYRINGE 1.5IN As Ordered ONE (09:33)
[2019-04-08] MEDS ORDERED: LIDOCAINE 1% SDV INJ 30 ML VIAL As Ordered ONE (09:33)
[2019-04-08] MEDS ORDERED: CETACAINE SPRAY 5GM As Ordered ONE (09:33)
[2019-04-08] MEDS ORDERED: THROMBIN SOLN 5,000 UNITS VIAL As Ordered ONE (09:33)
[2019-04-08] MEDS ORDERED: ONDANSETRON 4MG/2ML VIAL (J2405) As Ordered ONE (10:53)
[2019-04-08] MEDS ORDERED: dexameTHASONE 4 MG/ML 1ML VIAL (J1100) As Ordered ONE ×2 (10:53→10:57)
[2019-04-08] MEDS ORDERED: ROCURONIUM BROMIDE 50 MG/5 ML VIAL As Ordered ONE (10:53)
[2019-04-08] MEDS ORDERED: PROPOFOL 200 MG/20 ML VIAL As Ordered ONE (10:53)
[2019-04-08] MEDS ORDERED: fentaNYL 250 MCG/5 ML INJECTION (J3010) As Ordered ONE (10:59)
[2019-04-08] MEDS ORDERED: MIDAZOLAM INJ 2 MG/2 ML VIAL (J2250) As Ordered ONE (10:59)
[2019-04-08 11:01] LABS: CORTISOL AM 13.2 UG/DL (4.3-22.4); HIV 1&2 SCREEN CENTAUR NEGATIVE (NEGATIVE)
[2019-04-08] MEDS ORDERED: DESFLURANE 240 ML INHALANT As Ordered ONE (11:01)
[2019-04-08] MEDS ORDERED: SUGAMMADEX SODIUM 500 MG/5 ML VIAL (BRIDION) As Ordered ONE (11:26)
[2019-04-08] MEDS ORDERED: ePHEDrine SULFATE 25 MG/5 ML(5MG/ML) SYRINGE As Ordered ONE (11:37)
[2019-04-08] MEDS ORDERED: GLYCOPYRROLATE INJ 0.2 MG/ML 2 ML VIAL As Ordered ONE (11:40)
[2019-04-08] MEDS ORDERED: KETOROLAC 60 MG/2 ML VIAL (J1885) As Ordered ONE (11:46)
[2019-04-08] MEDS ORDERED: ONDANSETRON 4MG/2ML VIAL (J2405) IV PRN (12:30)
[2019-04-08] MEDS ORDERED: fentaNYL 100 MCG/2 ML INJECTION (J3010) IV PRN (12:30)
[2019-04-08] MEDS ORDERED: LR 1,000 ML IV SCH (12:30)
[2019-04-08] MEDS ORDERED: hydrALAZINE INJ 20 MG/ML VIAL As Ordered ONE (12:51)
[2019-04-08] MEDS: hydrALAZINE INJ 20 MG/ML VIAL IV SCH ×5 (12:52→13:35)
--- NOTE | 2019-04-08 13:51 | REP ---
CHEST, SINGLE VIEW: Single view of the chest is performed and compared to a prior study of 04/05/2019. The cavitating lesion in the right apex is again noted. There is no pneumothorax. No new infiltrate is seen. Heart is normal in size and the mediastinal silhouette is unchanged. Electronically Signed by Carroll Villanueva MD 04/08/2019 07:36 P
[2019-04-08] MEDS: THIAMINE 100 MG TAB PO SCH ×2 (14:15→21:03)
[2019-04-08] MEDS: MULTIVITAMINS/MINERALS THERAP 1 TAB PO SCH (14:15)
[2019-04-08] MEDS: FOLIC ACID 1 MG TAB PO SCH (14:15)
[2019-04-08 14:19] LABS: APPEARANCE HAZY (CLEAR); COLOR COLORLESS (COLORLESS); SOURCE RIGHT MIDDLE LOBE
[2019-04-08 14:42] LABS: APPEARANCE HAZY (CLEAR); COLOR PINK (COLORLESS); SOURCE BRON ALVEOLAR LAVAGE
[2019-04-08 15:20] LABS: MONOCYTES/MACROPHAGES, BAL 1 %
[2019-04-08 15:35] LABS: MONOCYTES/MACROPHAGES, BAL 1 %
--- NOTE | 2019-04-08 18:26 | IPN ---
DATE: 04/08/2019 Patient is seen, examined this morning. The patient denies any new complaints currently. He denies any increased shortness of breath. No fevers or chills. No night sweats. He does have occasional cough which he has not been noticing much sputum production. Denies any hemoptysis. PHYSICAL EXAMINATION: Temperature 97.2, pulse 71, respirations 18, blood pressure 147/85, O2 sat 97% on room air. General: The patient is lying in the stretcher does not appear to make a distress is able to speak in complete place sentences and is not using accessory muscles for respiration. HEENT: Normocephalic, atraumatic. Pupils are equal, react to light bilaterally. There is moist mucous membranes. NECK: Supple. Trachea is midline. There is no palpable cervical adenopathy and no JVD. Cardiovascular: Regular rate and rhythm. Normal S1-S2. There is a faint systolic murmur auscultated over the right upper sternal border. Respiratory: There are few coarse breath sounds in the right upper lobe but no significant wheezing rales or rhonchi. Abdomen is soft, nontender, nondistended. No palpable masses. Extremities: There is no lower extremity edema noted bilaterally. There is chronic weakness in the left upper extremity secondary to previous history of left arm fracture. Skin: There are red papular lesions on the face as well as the chest and arms. LABORATORY DATA: WBC 6.3, hemoglobin 12.4, platelets of 222. Chemistry sodium is 137, potassium 4.2, chloride 104, bicarb 26, BUN 12, creatinine 0.72, glucose was 86. Sputum AFB stains are negative times three. Sputum culture results showed moderate gram-positive cocci with few gram-negative cocci and gram- negative rods. HIV and QuantiFERON gold results are still pending. ASSESSMENT AND PLAN: Mr. Aviles is a 58-year male with history of prostate cancer and hypertension who presented after a syncopal episode. 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 The patient denies a history of tuberculosis or previous history of lung disease. He reports that he did have previous imaging done in the past and had never been told of any abnormalities in his lungs. Patient does have a cough occasionally but he is a heavy smoker. He denies any worsening shortness of breath. No hemoptysis, no fevers or chills. He does have some night sweats which he reports are chronic and he does not feel that it has been worsening. -Patient's cavitary lesion is suspicious for prior tuberculosis infection. Also in the differential is a fungal cavitary lesion and malignancy given his smoking history. -Patient's QuantiFERON gold is still pending. He also has HIV test which is still pending as well. - The patient's sputum AFB stains have been negative times three, however his culture results are still pending and it is unclear as to the quality of his sputum samples, although they were given after inducing with hypertonic saline nebs. - The patient was consented and had a electromagnetic navigational bronchoscopy performed today with biopsy of his right upper lobe cavitary lesion as well as FNA and brushings done. He also had BAL performed in his right upper lobe and in his right middle lobe. Will follow up the results of the biopsy and for his BAL. He did have fungal cultures, AFB and regular cultures sent. - Continue with airborne precautions for now. DVT prophylax Lovenox. FULL CODE MTDD
--- NOTE | 2019-04-08 19:16 | IPNPDOC ---
Date Seen The patient was seen on 04/08/19. Progress Note SUBJECTIVE: 58 y.o male w/ PMH of Prostate Ca & HTN presented to the ED after syncopal episode who was incidentally found to have RUL cavitary lesion. Patient seen in the morning, remains in the ED awaiting bed, comfortable, without any complaints at this time. He reports having a CT chest within the past year, denies being told of this lesion at that time. He denies any fever, chills, night sweats or weight loss, he was imprisoned over 20 years ago, denies any travel or contact with someone who has travel abroad. He is an active smoker, denies previous history of lung disease. He denies any SOB, CP, N/V/D or abdominal pain. 04/07/19 Patient comfortable in bed, a symptomatic, denies any shortness of breath, cough, chills or sweats. He has no complaints at this time, was orthostatic positive in the morning, on IV fluids. 04/08/19 Patient seen in the morning, without complaints, denies dyspnea, having minimal non-productive cough, no other complaints, awaiting Bronchoscopy later today. 10 point review of system is negative except for above. OBJECTIVE PHYSICAL EXAMINATION: VITAL SIGNS: Please see below. GENERAL: no distress HEENT: moist mucous membranes CARDIOVASCULAR: S1, S2, no murmurs RESPIRATORY: clear to auscultation, diminished breath sounds ABDOMINAL: soft, non-tender, non-distended, +BS EXTREMITIES: ROM intact NEUROLOGICAL: no focal deficits PSYCHOLOGICAL: calm & cooperative LABORATORY DATA, IMAGING STUDIES, MICROBIOLOGY: Please see below. DVT prophylaxis ordered?: Yes ASSESSMENT AND PLAN: 58 y.o male w/ PMH of Prostate Ca & HTN admitted for syncope & found to have RUL cavitary lesion on CT. PROBLEMS: 1. 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 2. Hyponatremia - resolved w/ IV fluids, will monitor. 3. Syncope - initially orthostatic positive, treated w/ IV fluids, no further episodes, currently asymptomatic. TTE pending 4. HTN - restarted Metoprolol DVT Prophylaxis - Lovenox GI Prophylaxis - not needed at this time VS, I&O, 24H, Fishbone Vital Signs/I&O Vital Signs Date Time Temp Pulse Resp B/P (MAP) Pulse Ox O2 Delivery O2 Flow Rate FiO2 04/08/19 18:38 96.9 72 16 138/72 (94) 95 Room Air 04/08/19 12:27 2 I&O- Last 24 Hours up to 6 AM 04/08/19 06:00 Intake Total 2980 ml Output Total 2100 ml Balance 880 ml Laboratory Data 24H LABS Laboratory Tests 2 04/08/19 06:13: Nucleated Red Blood Cells % (auto) 0.0, Anion Gap 7L, Glomerular Filtration Rate > 60.0, Calcium Level 8.7 04/08/19 11:50: Bronchial Specimen Source RIGHT MIDDLE LOBE, Bronchial Fluid WBC 174H, Bronchoalveolar Lavage Appearance HAZY, Bronchoalveolar Lavage Color COLORLESS, Bronchoalveolar Lavage Neutrophils 81, Bronchoalveolar Lavage Lymphocytes 17, Bronchoalveolar Lavage Eosinophils 1, Broncho Lavage Monocytes/Macrophage 1 CBC/BMP Laboratory Tests 04/08/19 06:13 Microbiology Microbiology 04/08/19 Fungal Smear, Received Pending 04/08/19 Fungal Culture, Received Pending 04/08/19 Acid Fast Stain, Received Pending 04/08/19 Mycobacterial Culture, Received Pending 04/08/19 Gram Stain - Final, Resulted 04/08/19 Bronchoalveolar Lavage Culture, Resulted Pending 04/08/19 Fungal Smear, Received Pending 04/08/19 Fungal Culture, Received Pending 04/08/19 Acid Fast Stain, Received Pending 04/08/19 Mycobacterial Culture, Received Pending 04/08/19 Gram Stain - Final, Resulted 04/08/19 Bronchoalveolar Lavage Culture, Resulted Pending 04/08/19 Acid Fast Stain - Final, Resulted 04/08/19 Mycobacterial Culture, Resulted Pending 04/07/19 Acid Fast Stain - Final, Resulted 04/07/19 Mycobacterial Culture, Resulted Pending 04/06/19 Gram Stain - Final, Resulted 04/06/19 Sputum Culture, Resulted Pending 04/06/19 Acid Fast Stain - Final, Resulted 04/06/19 Mycobacterial Culture, Resulted Pending 04/06/19 Acid Fast Stain - Final, Resulted 04/06/19 Mycobacterial Culture, Resulted Pending RUBEN CANAS MD Apr 08, 2019 19:16
[2019-04-08 21:20] LABS: MAGNESIUM LEVEL 1.9 MG/DL (1.8-2.4)
[2019-04-09 02:00] VITALS: BP_SYST 128; BP_SYST 140; BP_DIAS 62; BP_DIAS 74
[2019-04-09 05:45] VITALS: BP_SYST 152; BP_SYST 160; BP_SYST 164; BP_DIAS 84; BP_DIAS 88; BP_DIAS 92
[2019-04-09 06:00] VITALS: BP 160/84
[2019-04-09 08:43] LABS: HEMATOCRIT 36.6 % (42.0-52.0); HEMOGLOBIN 12.6 g/dl (13.5-17.5); MEAN CORPUSCULAR HEMOGLOBIN 34.6 pg (27.0-33.0); MEAN CORPUSCULAR HGB CONC 34.4 g/dl (32.0-36.5); MEAN CORPUSCULAR VOLUME 100.5 fl (80.0-96.0); PLATELET COUNT, AUTOMATED 224 10^3/uL (150-450); RED BLOOD COUNT 3.64 10^6/uL (4.30-6.10); WHITE BLOOD COUNT 12.4 10^3/uL (4.0-10.0)
[2019-04-09 08:53] LABS: BLOOD UREA NITROGEN 14 MG/DL (7-18); CALCIUM LEVEL 8.9 MG/DL (8.5-10.1); CARBON DIOXIDE LEVEL 25 MEQ/L (21-32); CHLORIDE LEVEL 99 MEQ/L (98-107); CREATININE FOR GFR 0.72 MG/DL (0.70-1.30); GLOMERULAR FILTRATION RATE > 60.0 (>56); GLUCOSE, FASTING 90 MG/DL (70-100); POTASSIUM SERUM 3.6 MEQ/L (3.5-5.1); SODIUM LEVEL 133 MEQ/L (136-145)
[2019-04-09] MEDS ORDERED: METOPROLOL SUCC *XL* 25MG TAB (TopROL *XL*) PO SCH (09:00)
[2019-04-09 10:24] VITALS: BP 152/87
[2019-04-09] MEDS: MULTIVITAMINS/MINERALS THERAP 1 TAB PO SCH (10:25)
[2019-04-09] MEDS: ENOXAPARIN 40 MG/0.4 ML SYRINGE (J1650) SC SCH (10:25)
[2019-04-09] MEDS: FOLIC ACID 1 MG TAB PO SCH (10:25)
[2019-04-09 10:26] VITALS: BP 152/87
--- NOTE | 2019-04-09 12:00 | ECGEPIP ---
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 Order Number: [id number] Reading MD: Hubert Holder Measurements Intervals [place] Rate: 63 P: 40 AL: 198 QRS: 70 QRSD: 102 T: 64 QT: 406 QTc: 416 Interpretive Statements SINUS RHYTHM, Mild nonspecific QRS widening. No significant change compared with 04/05/2019. Electronically Signed on 04-09-2019 12:00:02 EST by Hubert Holder
--- NOTE | 2019-04-09 12:14 | IPN ---
DATE: 04/09/2019 The patient was seen and examined this morning. He denies any new complaints. He has no increased shortness of breath and no chest pain. No fevers or chills. He has occasional cough which has not been very productive. He has not had any hemoptysis. Denies abdominal pain. No nausea or vomiting. The patient is eager to go home. The patient had a bronchoscopy yesterday which he tolerated well. PHYSICAL EXAMINATION: Temperature 96, pulse 66, respirations 18, blood pressure 160/84, O2 sat 97% on room air. General: The patient is lying in bed, does not appear to be in acute distress. He is speaking in complete sentences. He is not using accessory muscles for respiration. HEENT: Normocephalic, atraumatic. Pupils are reactive to light bilaterally and equal. There is moist mucous membranes. Neck is supple. Trachea is midline. No palpable cervical adenopathy or jugular venous distention (JVD). Cardiovascular: Regular rate and rhythm. Normal S1, S2. Faint systolic murmur in the right upper sternal border. Respiratory: Diminished breath sounds bilaterally, but no significant wheezing, rales or rhonchi. Abdomen is soft, nontender, nondistended. No palpable masses. Extremities: There is no lower extremity edema noted bilaterally. There is chronic weakness in his left upper extremity. Skin: There are red papular lesions on face as well as the chest and arms. LABORATORY DATA: WBC 12.4, hemoglobin 12.6 and platelets are 224. Chemistry: Sodium is 133, potassium 4.2, chloride is 99, bicarb is 25, BUN is 14, creatinine is 0.72, glucose is 90. HIV test is negative. QuantiFERON gold is pending. Micro: BAL of the right upper lobe gram stain showed few gram positive cocci in pairs, BAL right upper lobe AFB stain was negative. BAL of the right middle lobe gram stain showed a few gram positive cocci in pairs, BAL right middle lobe AFB stain is negative. ASSESSMENT AND PLAN: Mr. Aviles is a 58-year-old male with history of prostate cancer and hypertension who presented with a syncopal episode and hyponatremia. 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 The patient denies a previous history of TB or history of lung disease in the past. He reported previous imaging in the past where he had never been told of any abnormalities in his lungs. The patient does have a significant smoking history and he does have a cough, but denies any hemoptysis. No chest pain. No fevers or chills. - The patient had an electromagnetic navigational bronchoscopy performed yesterday with biopsy of the right upper lobe cavitary lesion as well as with FNA and brushings done of the lesion. He also had a BAL of the right upper lobe and of the right middle lobe. His BAL AFB stains have been negative and his culture shows a few gram positive cocci. The pathology results are still pending. - The patient's cavitary lesion was suspicious for possible prior tuberculosis with aspergilloma in the old TB lesions vs fungal cavitary lesion vs other atypical mycobacterial disease. Malignancy was also in the differential given his smoking history - The patient's QuantiFERON gold is still pending, but with the negative BAL AFB stains, he can be discharged with followup as an outpatient. - Will followup as an outpatient with the results of his pathology as well as with his QuantiFERON. We did discuss that the final AFB cultures can take 6-8 weeks to grow. - Deep vein thrombosis (DVT) prophylax. Lovenox. Full code. The patient will have followup scheduled with me in our office next week. Will call him with the appointment date and time. IVELISSE
--- NOTE | 2019-04-10 19:17 | DS.PDOC ---
Discharge Summary General Date of Admission Apr 05, 2019 at 23:16 Date of Discharge 04/09/19 Attending Physician: RUBEN CANAS MD Discharge Summary PROCEDURES PERFORMED DURING STAY: None ADMITTING DIAGNOSES: 1. Syncope, RUL lesion, hyponatremia, Orthostatic hypotension secondary to dehydration DISCHARGE DIAGNOSES: 1. Syncope, RUL lesion, hyponatremia, orthostatic hypotension secondary to dehydration COMPLICATIONS/CHIEF COMPLAINT: Hyponatremia; Syncope. HISTORY OF PRESENT ILLNESS: 58 y.o male w/ PMH of Alcoholism was admitted for syncope and incidentally found to have RUL lesion concerning for TB. He was Orthostatic positive upon presentation & hyponatremic, treated w/ IV fluids with adequate response. He no longer had any further episodes of Syncope, workup nega tive. His sputum was negative for AFB x3, underwent bronchoscopy & BAL was also negative for AFB, Quantiferon gold pending. He has been cleared for discharge with outpatient follow up to discuss further test results as they will take longer to return. Patient has been asymptomatic throughout hospitalization, currently hemodynamically & clinically stable for discharge. Patient understands and agrees with discharge plan. HOSPITAL COURSE: as above DISCHARGE MEDICATIONS: Please see below. ALLERGIES: Please see below. OBJECTIVE PHYSICAL EXAMINATION: VITAL SIGNS: Please see below. GENERAL: no distress HEENT: moist mucous membranes CARDIOVASCULAR: S1, S2, no murmurs RESPIRATORY: clear to auscultation, diminished breath sounds ABDOMINAL: soft, non-tender, non-distended, +BS EXTREMITIES: ROM intact NEUROLOGICAL: no focal deficits PSYCHOLOGICAL: calm & cooperative LABORATORY DATA: Please see below. IMAGING: CT w/ RUL cavitary lung lesion PROGNOSIS: Fair ACTIVITY: As tolerated DIET: Cardiac DISCHARGE PLAN: f/u with Pulmonary & PCP in 1-2 weeks DISPOSITION: 01 Home, Self-Care. DISCHARGE INSTRUCTIONS: 1. As above DISCHARGE CONDITION: Stable TIME SPENT ON DISCHARGE: Greater than 32 minutes. Vital Signs/I&Os Vital Signs Date Time Temp Pulse Resp B/P (MAP) Pulse Ox O2 Delivery O2 Flow Rate FiO2 04/09/19 10:26 80 152/87 04/09/19 06:00 96.0 18 97 Room Air 04/08/19 12:27 2 I&O- Last 24 Hours up to 6 AM 04/10/19 06:00 Intake Total 240 ml Output Total 200 ml Balance 40 ml Microbiology Microbiology 04/08/19 Fungal Smear, Received Pending 04/08/19 Fungal Culture, Received Pending 04/08/19 Acid Fast Stain - Final, Resulted 04/08/19 Mycobacterial Culture, Resulted Pending 04/08/19 Gram Stain - Final, Complete 04/08/19 Bronchoalveolar Lavage Culture - Final, Complete Streptococcus Pneumoniae 04/08/19 Fungal Smear, Received Pending 04/08/19 Fungal Culture, Received Pending 04/08/19 Acid Fast Stain - Final, Resulted 04/08/19 Mycobacterial Culture, Resulted Pending 04/08/19 Gram Stain - Final, Complete 04/08/19 Bronchoalveolar Lavage Culture - Final, Complete Streptococcus Pneumoniae 04/08/19 Acid Fast Stain - Final, Resulted 04/08/19 Mycobacterial Culture, Resulted Pending 04/07/19 Acid Fast Stain - Final, Resulted 04/07/19 Mycobacterial Culture, Resulted Pending 04/06/19 Gram Stain - Final, Complete 04/06/19 Sputum Culture - Final, Complete Moraxella Catarrhalis 04/06/19 Acid Fast Stain - Final, Resulted 04/06/19 Mycobacterial Culture, Resulted Pending 04/06/19 Acid Fast Stain - Final, Resulted 04/06/19 Mycobacterial Culture, Resulted Pending Discharge Medications Scheduled Ergocalciferol (Vitamin D2) (Vitamin D2) 50,000 Units Cap, 50,000 UNITS PO 1XWK, (Reported) Metoprolol Succinate (Metoprolol Succinate) 25 Mg Tab.er.24h, 25 MG PO DAILY, (Reported) Allergies Coded Allergies: No Known Allergies (Unverified , 04/05/19) RUBEN CANAS MD Apr 10, 2019 19:17
--- NOTE | 2019-04-11 06:29 | ECHO ---
DATE OF STUDY: 04/09/2019 REFERRING PHYSICIAN: Dr. Yaneth Craft INDICATION: Syncope. HEIGHT: 193 cm. WEIGHT: 74 kg. 2-D MEASUREMENTS: Ventricular septum: 0.83 cm Posterior wall: 0.96 cm Left ventricle diastole: 5.1 cm Aortic root: 3.0 cm Inferior vena cava: 2.4 cm (more than 50% respiratory variation) DOPPLER MEASUREMENTS: No aortic regurgitation Trace mitral regurgitation Trace tricuspid regurgitation No pulmonic regurgitation Mitral E velocity: 85.9 cm/sec Mitral A velocity: 47.9 cm/sec Aortic valve velocity: 103 cm/sec LVOT velocity: 72.2 cm/sec Pulmonary artery systolic pressure 14 mmHg MITRAL ANNULAR TISSUE DOPPLER: E prime lateral: 13.0 cm/sec E prime septal: 9.65 cm/sec DESCRIPTION: The rhythm was sinus with some PVCs observed. Image quality was fair. No pericardial effusion. This was a 2-D, M-mode, color flow Doppler and pulse wave Doppler examination and included mitral annular tissue Doppler. CONCLUSIONS: 1. Normal echocardiogram Doppler. 2. Normal left ventricle internal dimensions and wall thickness. Normal regional LV wall motion and wall thickening. Normal LV systolic function. LVEF 65% by visual estimate. Normal LV diastolic function.
--- NOTE | 2019-04-11 16:24 | ROOR ---
Patient Name: Rome Aviles Procedure Date: 04/08/2019 9:40 AM Date of : 1960 Admit Type: Outpatient Age: 58 Note Status: Finalized Attending MD: Tiffany Li MD Procedure: Bronchoscopy Indications: Right upper lobe cavitary lesion Providers: Tiffany Li MD (Doctor) Referring MD: Hardik Fairbanks Md (Referring MD) Requesting Physician: Medicines: General Anesthesia, Cetacaine topical Complications: No immediate complications. Estimated blood loss: Minimal Procedure: Pre-Anesthesia Assessment: - Prior to the procedure, a History and Physical was performed, and patient medications and allergies were reviewed. The patient's tolerance of previous anesthesia was also reviewed. The risks and benefits of the procedure and the sedation options and risks were discussed with the patient. All questions were answered, and informed consent was obtained. Prior Anticoagulants: The patient has taken no previous anticoagulant or antiplatelet agents. ASA Grade Assessment: II - A patient with mild systemic disease. After reviewing the risks and benefits, the patient was deemed in satisfactory condition to undergo the procedure. The Bronchoscope was introduced through the mouth, via the endotracheal tube (the patient was intubated for the procedure) and advanced to the tracheobronchial tree of both lungs. The procedure was accomplished without difficulty. The patient tolerated the procedure well. Findings: The endotracheal tube is in good position. The visualized portion of the trachea is of normal caliber. The honorio is sharp. The tracheobronchial tree was examined to at least the first subsegmental level. Bronchial mucosa and anatomy are normal; there are no endobronchial lesions, and no secretions. Electromagnetic navigation bronchoscopy utilizing the [employer] system with iLogic upgrade was performed. The CT scan was used for planning purposes. A virtual bronchoscopic image was generated using the planning software and the honorio, left main bronchus honorio, left lower lobe basilar segment, right upper lobe, right middle lobe and right lower lobe basilar segment registration points were marked on the virtual image. The target in the apical segment of the right upper lobe was marked. A lesion approx 2.5 cm in size was found and a pathway was created. After a complete airway exam, the locatable guide/extended working channel was inserted and an automatic registration was performed by advancing the scope through the honorio, left main bronchus honorio, left lower lobe basilar segment, right upper lobe, right middle lobe and right lower lobe basilar segment. The navigation phase was then begun to locate the target lesion(s). Positioning off-center (in relation to the lesion) was confirmed using the Olympus radial probe US catheter. The locatable guide was removed from the extended working channel. Fluoroscopy guided transbronchial brushings of a lesion were obtained in the apical segment of the right upper lobe with a needle brush and sent for routine cytology. Transbronchial brushing technique was selected because the sampling site was not visible endoscopically. Transbronchial needle aspirations of a lesion were performed in the apical segment of the right upper lobe GenCut needle and sent for routine cytology. The procedure was guided by fluoroscopy. Transbronchial needle aspiration technique was selected because the sampling site was not visible endoscopically. Transbronchial biopsies of a lesion were performed in the apical segment of the right upper lobe using forceps and sent for histopathology examination. The procedure was guided by fluoroscopy. Transbronchial biopsy technique was selected because the sampling site was not visible endoscopically. Bronchoalveolar lavage was performed in the RUL apical segment (B1) of the lung and sent for cell count, bacterial culture, viral smears & culture, and fungal & AFB analysis and cytology. The return was blood-tinged. Bronchoalveolar lavage was performed in the RML lateral segment (B4) of the lung and sent for cell count, bacterial culture, viral smears & culture, and fungal & AFB analysis and cytology. The return was cloudy. Impression: - Right upper lobe cavitary lesion - The airway examination was normal. - No specimens collected. Recommendation: - Follow up with bronchoscopist as previously scheduled. Attending Participation: I personally performed the entire procedure. Tiffany Li MD 04/11/2019 4:24:17 PM Number of Addenda: 0 Note Initiated On: 04/08/2019 9:40 AM
== END 2019-04-09 12:28 | disposition home or self-care (01) | DRG 204 ==
LOC: M ED 20:50 → M ED INP 23:16 → ENRESERV 04-06 13:00 → M PCU 04-06 13:54 → M MSPAV 04-07 16:47
PROVIDERS: ADMIT Internal Medicine; ATTEND Internal Medicine
PROC: 0BDC8ZX Extraction of Right Upper Lung Lobe, Via Natural or Artificial Opening Endoscopic, Diagnostic (ICD-10-PCS; principal; 2019-04-08 10:00)
DX: I95.1 Orthostatic hypotension (principal); E87.1 Hypo-osmolality and hyponatremia; C61 Malignant neoplasm of prostate; I10 Essential (primary) hypertension; E55.9 Vitamin D deficiency, unspecified; F17.200 Nicotine dependence, unspecified, uncomplicated; F10.10 Alcohol abuse, uncomplicated; R91.8 Other nonspecific abnormal finding of lung field; Z79.899 Other long term (current) drug therapy; Z87.81 Personal history of (healed) traumatic fracture

== ENCOUNTER → 2019-06-27 | Outpatient (REF) | payer OTHER | LOC: M LABDRAW1 14:53 | PROVIDERS: ATTEND Urology | DX: C61 Malignant neoplasm of prostate (principal) ==

== ENCOUNTER → 2019-06-27 | Outpatient (REF) | payer OTHER | LOC: M LABDRAW1 14:55 | PROVIDERS: ATTEND Orthopaedic Surgery | DX: S42.292K Other displaced fracture of upper end of left humerus, subsequent encounter for fracture with nonunion (principal) ==

== ENCOUNTER → 2019-07-31 | Outpatient (CLI) | payer MEDICAID, OTHER ==
--- NOTE | 2019-08-01 06:24 | REP ---
Clinical: Follow up mass lesion. Technique: Axial noncontrast images from the thoracic inlet to the upper abdomen with coronal and sagittal re-formations. Comparison: 04/05/2019. Findings: The irregular cavitary lesion in the right apex demonstrates significantly increased mural soft tissue nodularity along with small surrounding reticulonodular interstitial changes. No other significant pulmonary parenchymal lesions or consolidations are noted and there is no pleural effusion or pneumothorax. No obvious significant adenopathy is appreciated pretracheal lymph nodes measuring up to approximately 12 mm maximal diameter. Tracheobronchial tree is patent. Atherosclerotic changes to the thoracic aorta and coronary arteries noted without aortic aneurysm. No cardiomegaly or pericardial effusion. Surrounding musculoskeletal structures are intact. Impression: Irregular cavitary lesion in the right upper lobe/apex with increasing mural nodularity concerning for active disease. Differential diagnosis includes granulomas disease as well as neoplasm. Electronically Signed by Jim Shipley MD 08/01/2019 06:16 A
== END ==
LOC: M RAD 13:22
PROVIDERS: ATTEND Internal Medicine Pulmonary Disease
DX: R91.8 Other nonspecific abnormal finding of lung field (principal); F17.218 Nicotine dependence, cigarettes, with other nicotine-induced disorders

== ENCOUNTER → 2019-09-03 | Outpatient (REF) | payer OTHER ==
[2019-09-03 19:23] LABS: INR 0.98; PROTHROMBIN TIME 12.7 SECONDS (11.8-14.0)
[2019-09-03 19:24] LABS: PARTIAL THROMBOPLASTIN TIME 36.9 SECONDS (25.0-38.4)
[2019-09-03 19:30] LABS: BASO # 0.1 10^3/uL (0.0-0.2); BASO % 1.2 % (0.0-1.0); EOS # 0.2 10^3/uL (0.0-0.5); EOS % 1.8 % (0.0-3.0); HEMOGLOBIN 16.3 g/dl (13.5-17.5); LYMPH # 2.6 10^3/uL (1.5-5.0); LYMPH % 30.9 % (24.0-44.0); MEAN CORPUSCULAR HEMOGLOBIN 34.8 pg (27.0-33.0); MEAN CORPUSCULAR HGB CONC 36.2 g/dl (32.0-36.5); MEAN CORPUSCULAR VOLUME 96.2 fl (80.0-96.0); MONO # 0.9 10^3/uL (0.0-0.8); MONO % 10.4 % (0.0-5.0); NEUTROPHILS # 4.6 10^3/uL (1.5-8.5); NEUTROPHILS % 55.3 % (36.0-66.0); PLATELET COUNT, AUTOMATED 309 10^3/uL (150-450); RED BLOOD COUNT 4.68 10^6/uL (4.30-6.10); WHITE BLOOD COUNT 8.3 10^3/uL (4.0-10.0)
[2019-09-03 19:43] LABS: ALBUMIN 4.4 GM/DL (3.2-5.2); ALT/SGPT 34 U/L (12-78); BILIRUBIN,TOTAL 0.9 MG/DL (0.2-1.0); BLOOD UREA NITROGEN 7 MG/DL (7-18); CALCIUM LEVEL 9.7 MG/DL (8.5-10.1); CARBON DIOXIDE LEVEL 30 MEQ/L (21-32); CHLORIDE LEVEL 94 MEQ/L (98-107); CREATININE FOR GFR 0.74 MG/DL (0.70-1.30); GLOMERULAR FILTRATION RATE > 60.0 (>56); GLUCOSE, FASTING 71 MG/DL (70-100); SODIUM LEVEL 129 MEQ/L (136-145)
== END ==
LOC: M LAB REF 16:40
PROVIDERS: ATTEND Internal Medicine Pulmonary Disease
DX: R91.8 Other nonspecific abnormal finding of lung field (principal)

== ENCOUNTER → 2019-09-29 | Outpatient (CLI) | payer OTHER ==
[~2019-09-29] MED LIST changes: +AMLO2.5T3 PO
== END ==
LOC: M LABSMTC 09:00
PROVIDERS: ATTEND Anesthesiology
DX: Z01.818 Encounter for other preprocedural examination (principal); Z11.59 Encounter for screening for other viral diseases
CPT/HCPCS: C9803; U0003

== ENCOUNTER 2019-10-02 06:16 | Day surgery (SDC) | payer OTHER ==
[~2019-10-02] VITALS: Ht 190.5 cm; Wt 77.1 kg
[~2019-10-02 06:16] MED LIST changes: +LIDOCAINE 1% MDV 20ML VIAL SQ PRN
[2019-10-02] MEDS ORDERED: LR 1,000 ML IV ONE (07:00)
[2019-10-02] MEDS ORDERED: ROCURONIUM BROMIDE 50 MG/5 ML VIAL As Ordered ONE (07:16)
[2019-10-02] MEDS ORDERED: LIDOCAINE 2% 100MG/5ML SDV (FOR ANES.) As Ordered ONE (07:16)
[2019-10-02] MEDS ORDERED: fentaNYL 250 MCG/5 ML INJECTION (J3010) As Ordered ONE (07:16)
[2019-10-02] MEDS ORDERED: MIDAZOLAM INJ 2MG/2ML VIAL (J2250 PER 1MG) As Ordered ONE (07:16)
[2019-10-02] MEDS ORDERED: propofoL 200 MG/20 ML VIAL As Ordered ONE (07:16)
[2019-10-02] MEDS ORDERED: ACETAMINOPHEN 1000MG 100ML IV BTL (OFIRMEV) (J0131 PER 10MG) As Ordered ONE (07:17)
[2019-10-02] MEDS ORDERED: ONDANSETRON 4MG/2ML VIAL As Ordered ONE (07:17)
[2019-10-02] MEDS ORDERED: dexameTHASONE 4 MG/ML 1ML VIAL (J1100 PER 1MG) As Ordered ONE (07:17)
[2019-10-02] MEDS ORDERED: LIDOCAINE 1% SDV 30ML VIAL As Ordered ONE (07:20)
[2019-10-02] MEDS ORDERED: CETACAINE SPRAY 5GM As Ordered ONE (07:20)
[2019-10-02] MEDS ORDERED: THROMBIN SOLN 5,000 UNITS VIAL As Ordered ONE (07:21)
[2019-10-02] MEDS ORDERED: EPINEPHrine 1MG/10ML SYRINGE 1.5IN As Ordered ONE (07:21)
[2019-10-02] MEDS ORDERED: SUGAMMADEX SODIUM 500 MG/5 ML VIAL (BRIDION) As Ordered ONE (07:52)
[2019-10-02] MEDS ORDERED: KETOROLAC 60MG 2ML VIAL As Ordered ONE (07:52)
[2019-10-02] MEDS ORDERED: GLYCOPYRROLATE INJ 0.2 MG/ML 2 ML VIAL As Ordered ONE (08:02)
[2019-10-02] MEDS ORDERED: fentaNYL 100 MCG/2 ML INJECTION (J3010) IV PRN (09:00)
[2019-10-02] MEDS ORDERED: LR 1,000 ML IV SCH (09:00)
[2019-10-02] MEDS ORDERED: ONDANSETRON 4MG/2ML VIAL IV PRN (09:00)
[2019-10-02] MEDS ORDERED: oxyCODONE 5MG TAB PO PRN (09:00)
--- NOTE | 2019-10-02 09:17 | ROOR ---
Patient Name: Rome Aviles Procedure Date: 10/02/2019 7:16 AM Date of : 1960 Admit Type: Outpatient Age: 58 Room: Main OR Note Status: Finalized Attending MD: Tiffany Li MD Procedure: Bronchoscopy Indications: Right upper lobe mass Providers: Tiffany Li MD (Doctor) Referring MD: 1. No Referring Physician 1. No Referring Physician, Admin. (Referring MD) Requesting Physician: Medicines: General Anesthesia, Cetacaine topical Complications: No immediate complications. Estimated blood loss: Minimal Procedure: Pre-Anesthesia Assessment: - Prior to the procedure, a History and Physical was performed, and patient medications and allergies were reviewed. The patient's tolerance of previous anesthesia was also reviewed. The risks and benefits of the procedure and the sedation options and risks were discussed with the patient. All questions were answered, and informed consent was obtained. Prior Anticoagulants: The patient has taken no previous anticoagulant or antiplatelet agents. ASA Grade Assessment: II - A patient with mild systemic disease. After reviewing the risks and benefits, the patient was deemed in satisfactory condition to undergo the procedure. The Bronchoscope was introduced through the mouth, via the endotracheal tube (the patient was intubated for the procedure) and advanced to the tracheobronchial tree of both lungs. The procedure was accomplished without difficulty. The patient tolerated the procedure well. Findings: The endotracheal tube is in good position. The trachea is of normal caliber. The honorio is sharp. The tracheobronchial tree was examined to at least the first subsegmental level. Bronchial anatomy are normal; there are no endobronchial lesions. Bronchial mucosa showed pitting and webbing as well as some cartilaginous nodularity. There were few mucoid secretions noted throughout. Electromagnetic navigation bronchoscopy utilizing the MediWound system with iLogic upgrade was performed. The CT scan was used for planning purposes. A virtual bronchoscopic image was generated using the planning software and the honorio, left main bronchus honorio, left lower lobe basilar segment, right upper lobe, right middle lobe and right lower lobe basilar segment registration points were marked on the virtual image. The target in the posterior segment of the right upper lobe was marked. A mass approx 3.4 cm in size was found and a pathway was created. After a complete airway exam, the locatable guide/extended working channel was inserted and an automatic registration was performed by advancing the scope through the honorio, left main bronchus honorio, left lower lobe basilar segment, right upper lobe, right middle lobe and right lower lobe basilar segment. The navigation phase was then begun to locate the target lesion(s). Positioning centrally (in relation to the lesion) was confirmed using the Olympus radial probe US catheter. The locatable guide was removed from the extended working channel. Fluoroscopy guided transbronchial brushings of a mass were obtained in the posterior segment of the right upper lobe with a needle brush and sent for routine cytology. Transbronchial brushing technique was selected because the sampling site was not accessible using standard endoscopic (bronchoscopic) techniques. Transbronchial needle aspirations of a mass were performed in the posterior segment of the right upper lobe using a fine (19 gauge) needle and sent for routine cytology. The procedure was guided by fluoroscopy. Transbronchial needle aspiration technique was selected because the sampling site was not visible endoscopically. Transbronchial biopsies of a mass were performed in the posterior segment of the right upper lobe using forceps and sent for histopathology examination. The procedure was guided by fluoroscopy. Transbronchial biopsy technique was selected because the sampling site was not visible endoscopically. Bronchoalveolar lavage was performed in the RUL posterior segment (B2) of the lung and sent for cell count, bacterial culture, viral smears & culture, and fungal & AFB analysis and cytology. The return was blood-tinged and cloudy. An endobronchial ultrasound endoscope was utilized in order to assist with fine needle aspiration in the right paratracheal area. Endobronchial ultrasound examination of lymph nodes in the subcarinal region, right and left hilar region did not show pathologically enlarged lymph nodes. Transbronchial needle aspirations of a lymph node were performed in the right paratracheal area using an Olympus EBUS-TBNA 21 gauge needle and sent for routine cytology. The procedure was guided by ultrasound. Transbronchial needle aspiration technique was selected because the sampling site was not visible endoscopically. Impression: - Right upper lobe mass - The airway examination was normal. - Electromagnetic navigation bronchoscopy was performed. - Transbronchial lung biopsies were performed. - A transbronchial needle aspiration was performed. - Transbronchial brushings were obtained. - Bronchoalveolar lavage was performed. - Endobronchial ultrasound was performed. - A transbronchial needle aspiration was performed. Recommendation: - Await test results. Attending Participation: I personally performed the entire procedure. Tiffany Li MD 10/02/2019 9:16:58 AM Number of Addenda: 0 Note Initiated On: 10/02/2019 7:16 AM
--- NOTE | 2019-10-02 09:18 | REP ---
Portable chest x-ray: Single view. History: Postop evaluation after bronchoscopy. Comparison study: April 08, 2019. Findings: The lungs are hyperinflated. There is no evidence of pneumothorax or hydrothorax. There is evidence of a heterogeneous probably cavitary lesion in the right lung apex overlying the first thoracic rib. This appears unchanged. Lung pearson are otherwise clear. Heart is not enlarged. Impression: No complication seen. Electronically Signed by Simon Gorman MD 10/02/2019 09:09 A
[2019-10-02 09:55] VITALS: BP 175/75
--- NOTE | 2019-10-02 10:04 | REP ---
There are clinical: Bronchoscopy. Technique: Fluoroscopic imaging from bronchoscopic examination. Impression: Images demonstrate bronchoscope extending into the right upper lung zone. Total fluoroscopic time 3 minutes 28 seconds. Electronically Signed by Jim Shipley MD 10/02/2019 09:55 A
[2019-10-02 10:49] LABS: APPEARANCE HAZY (CLEAR); COLOR PINK (COLORLESS); SOURCE RIGHT UPPER LOBE
== END 2019-10-02 10:00 | disposition home or self-care (01) ==
LOC: M SDC 06:16
PROVIDERS: ATTEND Internal Medicine Pulmonary Disease
DX: J84.10 Pulmonary fibrosis, unspecified (principal); J44.9 Chronic obstructive pulmonary disease, unspecified; I10 Essential (primary) hypertension; R55 Syncope and collapse; F17.218 Nicotine dependence, cigarettes, with other nicotine-induced disorders; E55.9 Vitamin D deficiency, unspecified; Z79.899 Other long term (current) drug therapy; Z85.46 Personal history of malignant neoplasm of prostate
CPT/HCPCS: 31623; 31624; 31627; 31628; 31629; 31652; 71045; 76000; 87070; 87102; 87116; 87205; 87206; 88104; 88108; 88173; 88305; 88312; 88313; 89050; J0131; J1100; J1885; J2250; J2405; J3010

== ENCOUNTER → 2019-10-22 | Outpatient (CLI) | payer OTHER ==
[~2019-10-22] MED LIST changes: -LIDOCAINE 1% MDV 20ML VIAL SQ PRN
--- NOTE | 2019-10-22 13:35 | REP ---
Clinical: Abnormal lung findings. Followup. Technique: PA and lateral. Comparison: X-ray 10/02/2019. CT 07/31/2019. Findings: Mediastinum and cardiac silhouette are within normal limits and stable. Lung pearson demonstrate chronic stable changes. Area of opacity in the right apex is again identified and similar to prior examination and prior chest CT. No new acute consolidation, effusion, or pneumothorax. Skeletal structures are intact. Impression: Opacity in the right apex and scattered chronic changes appear relatively similar to prior examinations. No new acute process identified by radiographic evaluation. Electronically Signed by Jim Shipley MD 10/22/2019 01:26 P
== END ==
LOC: M RAD 12:58
PROVIDERS: ATTEND Internal Medicine Pulmonary Disease
DX: R91.8 Other nonspecific abnormal finding of lung field (principal)

== ENCOUNTER → 2019-11-06 | Outpatient (REF) | payer OTHER, MEDICAID | LOC: M SFHCPLAZ 11:37 | PROVIDERS: ATTEND Internal Medicine Infectious Disease | DX: R04.2 Hemoptysis (principal) ==

== ENCOUNTER → 2019-11-07 | Outpatient (REF) | payer OTHER, MEDICAID | LOC: M SFHCPLAZ 08:24 | PROVIDERS: ATTEND Internal Medicine Infectious Disease | DX: Z00.00 Encounter for general adult medical examination without abnormal findings (principal) ==

== ENCOUNTER → 2020-01-15 | Outpatient (REF) | payer OTHER | LOC: M LAB REF 10:36 | PROVIDERS: ATTEND Internal Medicine Pulmonary Disease | DX: A31.9 Mycobacterial infection, unspecified (principal) ==

== ENCOUNTER → 2020-02-07 | Outpatient (CLI) | payer OTHER, MEDICAID | LOC: M LAB 11:15 | PROVIDERS: ATTEND Urology | DX: C61 Malignant neoplasm of prostate (principal) ==

== ENCOUNTER → 2020-02-21 | Outpatient (REF) | payer OTHER, MEDICAID | LOC: M SFHCPLAZ 11:31 | PROVIDERS: ATTEND Internal Medicine Infectious Disease | DX: A31.8 Other mycobacterial infections (principal) ==

== ENCOUNTER → 2020-03-10 | Outpatient (CLI) | payer OTHER ==
--- NOTE | 2020-03-10 13:15 | REPPI ---
INDICATION: ELEVATED PSA. COMPARISON: 12/11/2018. TECHNIQUE: Real-time sonographic evaluation of prostate performed utilizing transrectal probe. FINDINGS: Prostate measures 3.9 x 4.6 x 2.5 cm, total volume 23.7 mL. IMPRESSION: Ultrasound guidance was provided for Dr. Mcdaniel who performed ultrasound-guided biopsy of the prostate. <Electronically signed by Carroll Villanueva > 03/10/20 1145
== END ==
LOC: M SMT PRO 11:01
PROVIDERS: ATTEND Urology
DX: C61 Malignant neoplasm of prostate (principal)
CPT/HCPCS: 76942; G0416

== ENCOUNTER → 2020-05-26 | Outpatient (REF) | payer OTHER, MEDICAID ==
[2020-05-26 15:13] LABS: BASO # 0.1 10^3/uL (0.0-0.2); BASO % 1.5 % (0.0-1.0); EOS # 0.4 10^3/uL (0.0-0.5); EOS % 6.4 % (0.0-3.0); HEMATOCRIT 39.5 % (42.0-52.0); LYMPH # 2.3 10^3/uL (1.5-5.0); LYMPH % 37.9 % (24.0-44.0); MEAN CORPUSCULAR HEMOGLOBIN 35.3 pg (27.0-33.0); MEAN CORPUSCULAR HGB CONC 35.4 g/dl (32.0-36.5); MEAN CORPUSCULAR VOLUME 99.5 fl (80.0-96.0); MONO # 0.7 10^3/uL (0.0-0.8); MONO % 12.2 % (2.0-8.0); NEUTROPHILS # 2.5 10^3/uL (1.5-8.5); NEUTROPHILS % 41.7 % (36.0-66.0); PLATELET COUNT, AUTOMATED 264 10^3/uL (150-450); RED BLOOD COUNT 3.97 10^6/uL (4.30-6.10); WHITE BLOOD COUNT 6.1 10^3/uL (4.0-10.0)
[2020-05-26 15:21] LABS: ALBUMIN 4.2 GM/DL (3.2-5.2); ALT/SGPT 20 U/L (12-78); BILIRUBIN,TOTAL 0.6 MG/DL (0.2-1.0); BLOOD UREA NITROGEN 10 MG/DL (7-18); CALCIUM LEVEL 9.8 MG/DL (8.8-10.2); CARBON DIOXIDE LEVEL 29 MEQ/L (21-32); CHLORIDE LEVEL 97 MEQ/L (98-107); CHOLESTEROL LEVEL 242 MG/DL (<200); CHOLESTEROL RISK RATIO 1.646 (<5); CREATININE FOR GFR 0.74 MG/DL (0.70-1.30); GLOMERULAR FILTRATION RATE > 60.0 (>49); GLUCOSE, FASTING 104 MG/DL (70-100); HDL CHOLESTEROL 147 MG/DL (>40); LDL CHOLESTEROL 84 MG/DL (<100); NON-HDL-C 95 MG/DL; POTASSIUM SERUM 4.8 MEQ/L (3.5-5.1); SODIUM LEVEL 133 MEQ/L (136-145); TOTAL PROTEIN 7.1 GM/DL (6.4-8.2); TRIGLYCERIDES LEVEL 55 MG/DL (<150)
[2020-05-26 15:41] LABS: ERYTHROCYTE SEDIMENTATION RATE 5 mm/hr (0-20)
== END ==
LOC: M SFHCPLAZ 11:20
PROVIDERS: ATTEND Internal Medicine Infectious Disease
DX: A31.8 Other mycobacterial infections (principal); I10 Essential (primary) hypertension

== ENCOUNTER → 2020-06-24 | Outpatient (REF) | payer OTHER ==
[2020-06-24 17:21] LABS: BASO # 0.1 10^3/uL (0.0-0.2); BASO % 1.5 % (0.0-1.0); EOS # 0.5 10^3/uL (0.0-0.5); EOS % 10.3 % (0.0-3.0); HEMATOCRIT 38.3 % (42.0-52.0); HEMOGLOBIN 13.4 g/dl (13.5-17.5); LYMPH % 38.9 % (24.0-44.0); MEAN CORPUSCULAR HEMOGLOBIN 34.9 pg (27.0-33.0); MEAN CORPUSCULAR VOLUME 99.7 fl (80.0-96.0); MONO # 0.7 10^3/uL (0.0-0.8); MONO % 13.7 % (2.0-8.0); NEUTROPHILS # 1.8 10^3/uL (1.5-8.5); NEUTROPHILS % 35.4 % (36.0-66.0); PLATELET COUNT, AUTOMATED 236 10^3/uL (150-450); RED BLOOD COUNT 3.84 10^6/uL (4.30-6.10); WHITE BLOOD COUNT 5.2 10^3/uL (4.0-10.0)
[2020-06-24 17:31] LABS: INR 0.87
[2020-06-24 17:32] LABS: PARTIAL THROMBOPLASTIN TIME 34.8 SECONDS (24.2-38.5)
[2020-06-24 17:46] LABS: ALT/SGPT 16 U/L (12-78); BILIRUBIN,TOTAL 0.4 MG/DL (0.2-1.0); BLOOD UREA NITROGEN 8 MG/DL (7-18); CALCIUM LEVEL 9.2 MG/DL (8.8-10.2); CARBON DIOXIDE LEVEL 29 MEQ/L (21-32); CHLORIDE LEVEL 99 MEQ/L (98-107); CREATININE FOR GFR 0.68 MG/DL (0.70-1.30); GLOMERULAR FILTRATION RATE > 60.0 (>49); GLUCOSE, FASTING 76 MG/DL (70-100); POTASSIUM SERUM 4.9 MEQ/L (3.5-5.1); SODIUM LEVEL 132 MEQ/L (136-145)
[2020-06-24 17:55] LABS: APPEARANCE, URINE CLEAR (CLEAR); BACTERIA, URINE AUTO NEGATIVE (NEGATIVE); BILIRUBIN, URINE AUTO NEGATIVE (NEGATIVE); BLOOD, URINE BLOOD NEGATIVE (NEGATIVE); COLOR, URINE AMBER (YELLOW); GLUCOSE, URINE (UA) AUTO NEGATIVE (NEGATIVE); KETONE, URINE AUTO NEGATIVE (NEGATIVE); LEUKOCYTE ESTERASE, URINE AUTO NEGATIVE (NEGATIVE); NITRITE, URINE AUTO NEGATIVE (NEGATIVE); PROTEIN, URINE AUTO NEGATIVE (NEGATIVE); RBC, URINE AUTO 0 /HPF (0-3); SPECIFIC GRAVITY URINE AUTO 1.011 (1.002-1.035); SQUAMOUS EPITHELIAL CELL UR AU 0 /HPF (0-6); UROBILINOGEN, URINE AUTO 0.2 mg/dL (0.0-2.0); WBC, URINE AUTO 0 /HPF (0-3)
== END ==
LOC: M LAB REF 16:08
PROVIDERS: ATTEND Nurse Practitioner Family
DX: Z01.818 Encounter for other preprocedural examination (principal)

== ENCOUNTER → 2020-06-29 | Outpatient (CLI) | payer OTHER ==
[~2020-06-29] MED LIST changes: +AZIT-12 PO; +CALC600T61 PO; +ETHA1TAB2 PO; +ETHAMBUTOL PO; +KP F1200 PO; +NORV5TAB PO; +PANT20TA6 PO; +RIFA30CA PO; +VITA-243 PO; +VITA500038 PO; +ZINC1TAB2 PO
--- NOTE | 2020-06-29 11:17 | REP ---
INDICATION: ENCOUNTER FOR OTHER PREPROCEDURAL EXAMINATION COMPARISON: 10/22/2019 TECHNIQUE: PA and lateral. FINDINGS: The mediastinum and cardiac silhouette are normal. The lung pearson are clear and without acute consolidation, effusion, or pneumothorax. The skeletal structures are intact and normal. IMPRESSION: No acute cardiopulmonary process. <Electronically signed by Jim Shipley > 06/29/20 1111
== END ==
LOC: M RAD 10:54
PROVIDERS: ATTEND Nurse Practitioner Family
DX: Z01.818 Encounter for other preprocedural examination (principal)

== ENCOUNTER → 2020-07-02 | Outpatient (CLI) | payer OTHER, MEDICAID | LOC: M LABSMTC 10:05 | PROVIDERS: ATTEND Anesthesiology | DX: Z01.812 Encounter for preprocedural laboratory examination (principal) ==

== ENCOUNTER 2020-07-07 06:09 | Inpatient (IN) | payer OTHER ==
[~2020-07-07] VITALS: Ht 182.9 cm; Wt 76.7 kg
[2020-07-07] VITALS (8 sets, daily range): BP systolic 125–175; BP diastolic 58–87
[2020-07-07] MEDS ORDERED: HEPARIN SOD (PORCINE) 5000UNITS/ML 1ML VIAL/SYRINGE SQ ONE (07:00)
[2020-07-07] MEDS ORDERED: LR 1,000 ML IV ONE (07:00)
[2020-07-07] MEDS ORDERED: ceFAZolin SOD 2 GM in IV 1 EA IV ONE (07:00)
[2020-07-07] MEDS ORDERED: BUPIVACAINE HCL 0.25% 30ML VIAL As Ordered ONE (07:12)
[2020-07-07] MEDS ORDERED: LIDOCAINE 1% SDV 30ML VIAL As Ordered ONE (07:12)
[2020-07-07] MEDS ORDERED: NS 1,000 ML IV SCH (07:57)
[2020-07-07] MEDS ORDERED: MORPHINE 2 MG/ML 1ML VIAL (J2270) IV PRN (08:00)
[2020-07-07] MEDS ORDERED: ACETAMINOPHEN TAB 650MG DOSE (2X325MG) PO PRN (08:00)
[2020-07-07] MEDS ORDERED: HEPARIN SOD (PORCINE) 5000UNITS/ML 1ML VIAL/SYRINGE SC SCH (08:00)
[2020-07-07] MEDS ORDERED: PERCOCET 5MG/325MG TAB PO PRN ×2 (08:00→13:25)
[2020-07-07] MEDS ORDERED: ONDANSETRON 4MG/2ML VIAL IV PRN ×2 (08:00→13:25)
[2020-07-07] MEDS ORDERED: HYDROmorphone HCL 2 MG/ML 1ML VIAL (J1170) As Ordered ONE (08:05)
[2020-07-07] MEDS ORDERED: dexameTHASONE 4 MG/ML 1ML VIAL (J1100 PER 1MG) As Ordered ONE (08:05)
[2020-07-07] MEDS ORDERED: MIDAZOLAM INJ 2MG/2ML VIAL (J2250 PER 1MG) As Ordered ONE (08:05)
[2020-07-07] MEDS ORDERED: fentaNYL 100 MCG/2 ML INJECTION (J3010) As Ordered ONE (08:05)
[2020-07-07] MEDS ORDERED: LIDOCAINE 2% 100MG/5ML SDV (FOR ANES.) As Ordered ONE (08:05)
[2020-07-07] MEDS ORDERED: ONDANSETRON 4MG/2ML VIAL As Ordered ONE (08:05)
[2020-07-07] MEDS ORDERED: ROCURONIUM BROMIDE 50 MG/5 ML VIAL As Ordered ONE ×4 (08:05→12:12)
[2020-07-07] MEDS ORDERED: propofoL 200 MG/20 ML VIAL As Ordered ONE (08:05)
[2020-07-07] MEDS ORDERED: PHENYLephrine 500MCG 5ML (100MCG/ML) SYRINGE As Ordered ONE (08:08)
[2020-07-07] MEDS ORDERED: SUGAMMADEX SODIUM 500 MG/5 ML VIAL (BRIDION) As Ordered ONE (12:13)
[2020-07-07] MEDS ORDERED: ACETAMINOPHEN 1000MG 100ML IV BTL (OFIRMEV) (J0131 PER 10MG) As Ordered ONE (12:14)
[2020-07-07] MEDS ORDERED: HYDROMORPHONE HCL 0.5 MG/ 0.5 ML SYRINGE (J1170 PER 1) IV PRN (13:25)
[2020-07-07] MEDS ORDERED: METOCLOPRAMIDE INJ 10MG/2ML VIAL (J2765 PER 1) IV PRN (13:25)
[2020-07-07] MEDS ORDERED: fentaNYL 100 MCG/2 ML INJECTION (J3010) IV PRN (13:25)
[2020-07-07] MEDS ORDERED: LR 1,000 ML IV SCH (13:25)
--- NOTE | 2020-07-07 13:48 | ROOPDOC ---
[facility] Report Of Operation Report of Operation DATE OF PROCEDURE: 07/07/20 PREPROCEDURE DIAGNOSIS: Prostate cancer. POSTPROCEDURE DIAGNOSIS: Prostate cancer. PROCEDURE: Robotic-assisted laparoscopic radical prostatectomy with bilateral pelvic lymph node dissection. SURGEON: Steffanie Price MD FIELD SERVICE REP: Chaparrita Mariano NP ANESTHESIA: General. OPERATIVE INDICATIONS: This is a 59 year old male with clinical T1c Olympia 4+3 prostate cancer. After a discussion of the options for treatment, he elected to undergo the above procedure. DESCRIPTION OF PROCEDURE: The patient was brought to the operating room and general anesthesia was induced. Prophylactic antibiotics were infused. He was then placed in the supine position and prepped and draped in the usual sterile fashion. At this point, a Strickland catheter was inserted into the bladder and the balloon was filled with 10 mL of sterile water. We then made a midline incision just above the umbilicus for an 8 mm port. A Veress needle was utilized to achieve pneumoperitoneum. Next, an 8 mm port was inserted into the incision and subsequently a camera was inserted. There were no injuries from the Veress needle or initial trocar placement. At this point, we placed the remaining ports, including a 12 mm assistant director of residence life port and then three robotic ports in the usual configuration. Once all the ports we re placed, the robot was docked. Lysis of adhesions between the sigmoid colon and abdominal wall was then performed. The bladder was then released from the anterior abdominal wall using electrocautery. Once the bladder was dropped, the fat overlying the prostate was cleared using electrocautery. The superficial dorsal vein was controlled with electrocautery. The endopelvic fascia was opened on both sides and the dorsal venous complex was cleared. Next, a #0 Vicryl [id number] stitch was placed around the dorsal venous complex. Once that was done, the bladder was opened and dissected away from the prostate. At this point, the prostate was lifted up. The vasa deferentia were identified in the midline. They were then ligated and transected. The seminal vesicles were also dissected off bilaterally. The rectum was safely mobilized away from the prostate. The left neurovascular bundle was dissected off of the prostate using cold scissors. Bilateral prostatic pedicles were taken using the Harmonic scalpel. The pedicles were carried towards the apex. After taking care of the pedicles and mobilizing the rectum off the prostate below, the prostate was only connected by the urethra. At this point, the dorsal venous complex was transected with electrocautery. The urethra was then opened and the catheter was withdrawn and the posterior urethra was transected, thus freeing the prostate. At this point, we checked for hemostasis and it did appear very good. Next, we performed bilateral pelvic lymph node dissection. This was done in a standard fashion. The limits of dissection were the iliac vein proximally, the obturator nerve distally, the pelvic sidewall laterally, and the bladder medially. All lymphatic tissue within these limits was removed. I performed the same procedure on both the right and left sides. Hemostasis was then obtained with bipolar electrocautery. The lymphatic packets were then placed in separate Endo Catch bags for future retrieval. Once hemostasis was confirmed, I then moved on to perform the vesicourethral anastomosis. This was performed with a Quill stitch in a running fashion. Once this was done, the final #20-Armenian Strickland catheter was placed. The balloon was filled with 15 mL of sterile water. Upon completion of the vesicourethral anastomosis, it was tested by filling the bladder with sterile saline water. The anastomosis appeared to be watertight. At this point, the prostate and seminal vesicles were placed in an Endo Catch bag for future retrieval. The robot was then undocked. A Nguyen fascial closure device was utilized to place a #0 Vicryl suture between the fascia of the 12 mm assistant director of residence life port. At this point, a Basim- Chirinos drain was brought in through the left robotic port skin site and the drain was positioned anterior to the bladder. The drain was secured to the skin with #2-0 Ethilon suture. Next, all the remaining ports were removed and there did not appear to be any bleeding from any of the port sites. The prostate, as well as the lymphatic packets were then extracted from the camera port site after the skin was extended. The fascia in this incision was then closed with a running #0 Vicryl stitch. The previously placed #0 Vicryl free ties through the assistant director of residence life port were then tied down and all incisions were irrigated. Last, all of the incisions were closed with running subcuticular #4-0 Monocryl sutures. Local anesthesia was applied. Dermabond was then applied to the incisions. This marked the conclusion of the procedure. The patient was then awakened from anesthesia and transported to the recovery room in stable condition. ESTIMATED BLOOD LOSS: 100 mL. COMPLICATIONS: None. SPECIMENS: Prostate and seminal vesicles, right pelvic lymph nodes, left pelvic lymph nodes. PLAN: The patient will be admitted to the hospital postoperatively, and he will likely be discharged home within the next 1-2 days. STEFFANIE PRICE MD Jul 07, 2020 13:48
[2020-07-07 14:25] LABS: HEMATOCRIT 37.8 % (42.0-52.0); HEMOGLOBIN 13.4 g/dl (13.5-17.5); MEAN CORPUSCULAR HEMOGLOBIN 35.4 pg (27.0-33.0); MEAN CORPUSCULAR HGB CONC 35.4 g/dl (32.0-36.5); MEAN CORPUSCULAR VOLUME 99.7 fl (80.0-96.0); PLATELET COUNT, AUTOMATED 225 10^3/uL (150-450); RED BLOOD COUNT 3.79 10^6/uL (4.30-6.10); WHITE BLOOD COUNT 9.9 10^3/uL (4.0-10.0)
[2020-07-07 14:53] LABS: BLOOD UREA NITROGEN 6 MG/DL (7-18); CALCIUM LEVEL 9.1 MG/DL (8.8-10.2); CARBON DIOXIDE LEVEL 26 MEQ/L (21-32); CHLORIDE LEVEL 98 MEQ/L (98-107); CREATININE FOR GFR 0.75 MG/DL (0.70-1.30); GLOMERULAR FILTRATION RATE > 60.0 (>49); GLUCOSE, FASTING 137 MG/DL (70-100); SODIUM LEVEL 130 MEQ/L (136-145)
[2020-07-07] MEDS: DOCUSATE SODIUM 100MG CAPSULE PO SCH ×2 (14:58→21:44)
[2020-07-07] MEDS: HEPARIN SOD (PORCINE) 5000UNITS/ML 1ML VIAL/SYRINGE SC SCH ×2 (14:59→21:44)
[2020-07-07] MEDS: ceFAZolin SOD 1 GM in D5W MINI-BAG PLUS 50 ML IV SCH ×2 (15:00→23:53)
[2020-07-07] MEDS: PERCOCET 5MG/325MG TAB PO PRN (19:03)
[2020-07-07] MEDS ORDERED: ceFAZolin 2 GM/D5W 50 ML IV BAG (J0690 PER 500MG) As Ordered ONE (23:49)
[2020-07-07] MEDS ORDERED: ceFAZolin 1GM VIAL (J0690 PER 500MG) As Ordered ONE (23:51)
[2020-07-08] MEDS ORDERED: PERCOCET 5MG/325MG TAB As Ordered ONE (00:04)
[2020-07-08] MEDS: PERCOCET 5MG/325MG TAB PO PRN ×2 (00:05→10:28)
[2020-07-08 02:00] VITALS: BP 136/60
[2020-07-08] MEDS: HEPARIN SOD (PORCINE) 5000UNITS/ML 1ML VIAL/SYRINGE SC SCH ×2 (05:40→15:46)
[2020-07-08 06:00] VITALS: BP 128/62
[2020-07-08 06:58] LABS: HEMATOCRIT 28.5 % (42.0-52.0); MEAN CORPUSCULAR HEMOGLOBIN 34.8 pg (27.0-33.0); MEAN CORPUSCULAR HGB CONC 35.4 g/dl (32.0-36.5); MEAN CORPUSCULAR VOLUME 98.3 fl (80.0-96.0); PLATELET COUNT, AUTOMATED 187 10^3/uL (150-450); WHITE BLOOD COUNT 5.8 10^3/uL (4.0-10.0)
[2020-07-08 07:00] LABS: HEMOGLOBIN 10.1 g/dl (13.5-17.5)
[2020-07-08 07:36] LABS: BLOOD UREA NITROGEN 7 MG/DL (7-18); CALCIUM LEVEL 8.8 MG/DL (8.8-10.2); CARBON DIOXIDE LEVEL 27 MEQ/L (21-32); CHLORIDE LEVEL 98 MEQ/L (98-107); CREATININE FOR GFR 0.54 MG/DL (0.70-1.30); GLOMERULAR FILTRATION RATE > 60.0 (>49); GLUCOSE, FASTING 93 MG/DL (70-100); POTASSIUM SERUM 4.2 MEQ/L (3.5-5.1); SODIUM LEVEL 131 MEQ/L (136-145)
--- NOTE | 2020-07-08 07:54 | IPNPDOC ---
Subjective Review oF Systems Chief Complaint The patient is a 59-year-old male admitted with a reason for visit of Prostate Cancer. Events since Last Encounter No acute events o/n. Has uncomfortable suprapubic pain, but tolerating ok. No n/v. No f/c/ns. Objective Physical Examination General Exam: Alert, Cooperative, No Acute Distress ABDOMEN EXAM: Soft, Tenderness (mild), Other (incsions clean/dry/intact; MARY ANNE w/ serosanguinous output) Neuro Exam: Normal Speech Psych Exam: Mental status NL, Mood NL Other physical findings catheter draining yellow urine Vital Signs/I&O Vital Signs Date Time Temp Pulse Resp B/P (MAP) Pulse Ox O2 Delivery O2 Flow Rate FiO2 07/08/20 06:00 98.1 76 14 128/62 (84) 97 Nasal Cannula 2.0 I&O- Last 24 Hours up to 6 AM 07/08/20 06:00 Intake Total 2790 ml Output Total 1900 ml Balance 890 ml Laboratory Data Labs 24H Laboratory Tests 2 07/07/20 13:56: Nucleated Red Blood Cells % (auto) 0.0, Anion Gap 6L, Glomerular Filtration Rate > 60.0, Calcium Level 9.1 07/08/20 06:45: Nucleated Red Blood Cells % (auto) 0.0, Anion Gap 6L, Glomerular Filtration Rate > 60.0, Calcium Level 8.8 CBC/BMP Laboratory Tests 07/07/20 13:56 07/08/20 06:45 Assessment/Plan Date Seen The patient was seen on 07/08/20. Patient Summary This is a 59 y/o M POD1 s/p RALP w/ BPLND. He is doing well. Good UOP. Normal MARY ANNE output. Plan/VTE VTE Prophylaxis Ordered?: Yes VTE Exclusion Mechanical Proph: N/A:VTE Prophy Ordered VTE Exclusion Pharmacological: N/A:VTE Prophy Ordered Plan/Urinary Catheter Urinary Catheter: Other Catheter: (catheter will need to stay in for at least 7 days) Plan - percocet prn pain - ambulate - SCDs when in bed - CT chest ordered for patient's hx of nonTB mycobacterial pneumonia - patient followed by ID and pulmonary as outpatient - CT ordered per their request - SQH - incentive spirometry - advance diet as tolerated - possible discharge home later today w/ catheter STEFFANIE PRICE MD Jul 08, 2020 07:54
--- NOTE | 2020-07-08 08:47 | REP ---
INDICATION: hx of nonTB mycobacterial pneumonia - f/u CT. COMPARISON: Chest CT dated 07/31/2019. TECHNIQUE: Chest CT without IV contrast. FINDINGS: The known right upper lobe cavitary lesion has decreased in size today measuring 17 mm (previously 31 mm. The previously thickened spear of the cavitary lesion have significantly regressed and the spear are now thin without nodularity. There is linear scarring emanating from cavitary lesion toward the lateral pleura and toward the medial pleura. There are no other lung masses or nodules. There are no infiltrates or effusions. There is minimal mediastinal and subcutaneous body fat. There is no mediastinal lymph node enlargement. There is no axillary lymphadenopathy. In the absence of IV contrast study is insensitive for hilar lymph node enlargement. The unenhanced thoracic aorta is unremarkable. Cardiac size is normal. There is no pericardial effusion. Upper abdomen: The there is beam hardening degrading image quality arising from the patient's arms. Patient was scanned with the arms at side. The visualized hepatic, pancreatic and splenic parenchyma are grossly unremarkable. Visualized gallbladder is unremarkable. The adrenals and renal upper poles are unremarkable. IMPRESSION: Significant improvement in the known right upper lobe apical cavitary lesion. The lesion has decreased in size and is now thin walled. There is no nodularity. There is linear scarring extending medially and laterally from the cavitary lesion. Otherwise, essentially negative CT study of the chest. <Electronically signed by Carroll Kessler > 07/08/20 [id number]
[2020-07-08] MEDS ORDERED: rifAMPin 150MG CAPSULE PO SCH (09:00)
[2020-07-08] MEDS ORDERED: amLODIPine 5 MG TAB PO SCH (09:00)
[2020-07-08] MEDS ORDERED: AZITHROMYCIN 250MG TABLET PO SCH (09:00)
[2020-07-08] MEDS ORDERED: ETHAMBUTOL 400MG TAB PO SCH (09:00)
[2020-07-08] MEDS ORDERED: PANTOPRAZOLE 20 MG TAB PO SCH (09:00)
[2020-07-08 10:00] VITALS: BP 117/73
[2020-07-08] MEDS: DOCUSATE SODIUM 100MG CAPSULE PO SCH (10:28)
[2020-07-08 10:30] VITALS: BP 104/56
[2020-07-08 14:00] VITALS: BP 118/69
[2020-07-08] MEDS ORDERED: PERCOCET PO (15:07)
[2020-07-08] MEDS ORDERED: DOK1CAP7 PO (15:07)
--- NOTE | 2020-07-08 20:41 | DSES ---
DISCHARGE SUMMARY DATE OF ADMISSION: 07/07/2020 DATE OF DISCHARGE: 07/08/2020 ADMISSION DIAGNOSIS: Prostate cancer. DISCHARGE DIAGNOSIS: Prostate cancer. ADMITTING PHYSICIAN: Dr. Charli Mcdaniel DISCHARGE PHYSICIAN: Dr. Charli Mcdaniel PROCEDURE PERFORMED: Robotic assisted laparoscopic radical prostatectomy with bilateral pelvic lymph node dissection on July 07, 2020 HISTORY OF PRESENT ILLNESS: This is a 59-year-old male with prostate cancer who elected to undergo a robotic radical prostatectomy with pelvic lymph node resection for treatment. He was admitted to the hospital philosophically. HOSPITALIZATION COURSE: The patient was admitted to the hospital to undergo the above procedure on July 07, 2020. His postop course was unremarkable. On postoperative day number one he was ambulating well. Of note, he did have some lightheadedness when he started ambulating at first early in the day. When he ambulated again, he was able to ambulate much better and had no lightheadedness. His pain was well controlled with oral pain medications. His diet was advanced, and he tolerated a regular a diet without nausea or vomiting. He had excellent urine output through is Strickland catheter and minimal output of his Basim-Chirinos drain. By the afternoon of postoperative day number one he was deemed ready for discharge home. His Basim-Chirinos drain was removed prior to discharge. He was discharged home with his catheter in place with the plan for him to follow up in the Urology Clinic in approximately one week for catheter removal and to discuss his pathology results. IVELISSE
== END 2020-07-08 17:25 | disposition home or self-care (01) | DRG 480 ==
LOC: M OR 06:09 → M MSPAV 14:47
PROVIDERS: ADMIT Urology; ATTEND Urology
PROC: 07TC4ZZ Resection of Pelvis Lymphatic, Percutaneous Endoscopic Approach (ICD-10-PCS; 2020-07-07)
PROC: 8E0W4CZ Robotic Assisted Procedure of Trunk Region, Percutaneous Endoscopic Approach (ICD-10-PCS; 2020-07-07)
PROC: 0VT04ZZ Resection of Prostate, Percutaneous Endoscopic Approach (ICD-10-PCS; principal; 2020-07-07 07:30)
DX: C61 Malignant neoplasm of prostate (principal)

== ENCOUNTER → 2020-07-24 | Outpatient (REF) | payer OTHER, MEDICAID ==
[~2020-07-24] MED LIST changes: +DOK1CAP7 PO; +PERCOCET PO
== END ==
LOC: M SFHCPLAZ 15:44
PROVIDERS: ATTEND Internal Medicine Infectious Disease
DX: A31.0 Pulmonary mycobacterial infection (principal)

== ENCOUNTER → 2020-08-12 | Outpatient (CLI) | payer OTHER | LOC: M LAB 12:16 | PROVIDERS: ATTEND Urology | DX: C61 Malignant neoplasm of prostate (principal) ==

== ENCOUNTER → 2020-08-20 | Outpatient (REF) | payer OTHER, MEDICAID | LOC: M LAB REF 17:13 | PROVIDERS: ATTEND Physician Assistant | DX: R21 Rash and other nonspecific skin eruption (principal) ==

== ENCOUNTER → 2020-10-14 | Outpatient (REF) | payer OTHER, MEDICAID ==
[~2020-10-14] MED LIST changes: +ERGO500029 PO; -VITA50005 PO
== END ==
LOC: M SFHCPLAZ 11:49
PROVIDERS: ATTEND Internal Medicine Infectious Disease
DX: A31.8 Other mycobacterial infections (principal)

== ENCOUNTER → 2020-11-06 | Outpatient (CLI) | payer OTHER ==
[~2020-11-06] MED LIST changes: +DOK1CAP4 PO; -DOK1CAP7 PO
== END ==
LOC: M LAB 12:21
PROVIDERS: ATTEND Urology
DX: C61 Malignant neoplasm of prostate (principal)

== ENCOUNTER → 2020-11-24 | Outpatient (REF) | payer OTHER, MEDICAID | LOC: M SFHCPLAZ 16:55 | PROVIDERS: ATTEND Internal Medicine Infectious Disease | DX: A31.8 Other mycobacterial infections (principal) ==

== ENCOUNTER → 2020-12-29 | Outpatient (CLI) | payer OTHER, MEDICAID | LOC: M LAB 09:26 | PROVIDERS: ATTEND Urology | DX: C61 Malignant neoplasm of prostate (principal) ==

== ENCOUNTER → 2021-01-20 | Outpatient (CLI) | payer OTHER ==
--- NOTE | 2021-01-20 10:27 | REP ---
INDICATION: ABN FINDING OF LUNG, COPD, NICOTINE DEPENDENCE COMPARISON: 07/08/2020 TECHNIQUE: Axial noncontrast images from the thoracic inlet to the upper abdomen with coronal and sagittal reformations. This CT examination was performed using the following dose reduction techniques: Automated exposure control, adjustment of mA and/or kv according to the patient's size, and use of iterative reconstruction technique. FINDINGS: Stable small cavitary changes with surrounding scarring and small stable noncalcified nodular densities involve the right upper lobe appearing unchanged from most recent prior examination and considerably improved in appearance when compared through 04/05/2019. Remainder of the bilateral lung pearson are well aerated and clear. No further acute consolidation, suspicious nodule or mass lesion. No effusion. No pneumothorax. Tracheobronchial tree is patent. The mediastinum demonstrates stable atherosclerotic changes to the thoracic aorta and coronary arteries without aortic aneurysm or cardiomegaly. No pericardial effusion. IMPRESSION: 1. Small cavitary changes with spiculated margination and small adjacent nodular densities in the right upper lobe appears stable compared to 07/08/2020 and significantly improved when compared through 04/05/2019. Findings likely represent sequelae of prior infectious/inflammatory process. 2. No acute mediastinal or pleuroparenchymal process appreciated. <Electronically signed by Jim Shipley > 01/20/21 [id number]
== END ==
LOC: M PLAIMG 09:42
PROVIDERS: ATTEND Internal Medicine Pulmonary Disease
DX: R91.8 Other nonspecific abnormal finding of lung field (principal); J44.9 Chronic obstructive pulmonary disease, unspecified; F17.218 Nicotine dependence, cigarettes, with other nicotine-induced disorders

== ENCOUNTER → 2021-03-05 | Outpatient (CLI) | payer OTHER, MEDICAID | LOC: M LAB 08:59 | PROVIDERS: ATTEND Urology | DX: C61 Malignant neoplasm of prostate (principal) ==

== ENCOUNTER → 2021-06-14 | Outpatient (CLI) | payer OTHER | LOC: M LAB 08:39 | PROVIDERS: ATTEND Urology | DX: C61 Malignant neoplasm of prostate (principal) ==

== ENCOUNTER → 2021-08-13 | Outpatient (CLI) | payer OTHER ==
[2021-08-13 08:47] LABS: BASO # 0.1 10^3/uL (0.0-0.2); BASO % 1.8 % (0.0-1.0); EOS # 0.5 10^3/uL (0.0-0.5); EOS % 7.8 % (0.0-3.0); HEMATOCRIT 41.5 % (42.0-52.0); LYMPH # 2.3 10^3/uL (1.5-5.0); MEAN CORPUSCULAR HEMOGLOBIN 34.6 pg (27.0-33.0); MEAN CORPUSCULAR HGB CONC 36.1 g/dl (32.0-36.5); MEAN CORPUSCULAR VOLUME 95.6 fl (80.0-96.0); MONO # 0.9 10^3/uL (0.0-0.8); MONO % 14.8 % (2.0-8.0); NEUTROPHILS # 2.4 10^3/uL (1.5-8.5); NEUTROPHILS % 38.1 % (36.0-66.0); PLATELET COUNT, AUTOMATED 274 10^3/uL (150-450); RED BLOOD COUNT 4.34 10^6/uL (4.30-6.10); WHITE BLOOD COUNT 6.3 10^3/uL (4.0-10.0)
[2021-08-13 09:08] LABS: ALT/SGPT 38 U/L (12-78); BILIRUBIN,TOTAL 0.5 MG/DL (0.2-1.0); BLOOD UREA NITROGEN 5 MG/DL (7-18); CALCIUM LEVEL 10.1 MG/DL (8.8-10.2); CARBON DIOXIDE LEVEL 27 MEQ/L (21-32); CHLORIDE LEVEL 98 MEQ/L (98-107); CREATININE FOR GFR 0.86 MG/DL (0.70-1.30); GLOMERULAR FILTRATION RATE > 60.0 (>49); GLUCOSE, FASTING 100 MG/DL (70-100); SODIUM LEVEL 132 MEQ/L (136-145); TOTAL PROTEIN 7.3 GM/DL (6.4-8.2)
[2021-08-13 09:22] LABS: ERYTHROCYTE SEDIMENTATION RATE 3 mm/hr (0-20)
== END ==
LOC: M LAB 07:44
PROVIDERS: ATTEND Internal Medicine Infectious Disease
DX: A31.8 Other mycobacterial infections (principal)

== ENCOUNTER → 2021-12-13 | Outpatient (CLI) | payer OTHER, MEDICAID | LOC: M LAB 08:23 | PROVIDERS: ATTEND Urology | DX: C61 Malignant neoplasm of prostate (principal) ==

== ENCOUNTER → 2022-01-25 | Outpatient (CLI) | payer OTHER | LOC: M PLAIMG 08:48 | PROVIDERS: ATTEND Internal Medicine Pulmonary Disease | DX: R91.8 Other nonspecific abnormal finding of lung field (principal) ==

== ENCOUNTER → 2022-06-22 | Outpatient (CLI) | payer OTHER | LOC: M LAB 09:22 | PROVIDERS: ATTEND Urology | DX: C61 Malignant neoplasm of prostate (principal) ==

== ENCOUNTER → 2022-10-31 | Outpatient (REF) | payer OTHER, MEDICAID ==
[2022-10-31 16:59] LABS: HEMOGLOBIN A1c 4.9 % (4.0-6.0)
[2022-10-31 17:09] LABS: BASO # 0.1 10^3/uL (0.0-0.2); BASO % 2.1 % (0.0-1.0); EOS # 0.4 10^3/uL (0.0-0.5); EOS % 6.5 % (0.0-3.0); HEMOGLOBIN 15.5 g/dl (13.5-17.5); LYMPH # 1.8 10^3/uL (1.5-5.0); LYMPH % 30.6 % (24.0-44.0); MEAN CORPUSCULAR HEMOGLOBIN 33.8 pg (27.0-33.0); MEAN CORPUSCULAR HGB CONC 35.2 g/dl (32.0-36.5); MEAN CORPUSCULAR VOLUME 96.1 fl (80.0-96.0); MONO # 0.7 10^3/uL (0.0-0.8); MONO % 11.6 % (2.0-8.0); NEUTROPHILS # 2.8 10^3/uL (1.5-8.5); NEUTROPHILS % 48.8 % (36.0-66.0); PLATELET COUNT, AUTOMATED 318 10^3/uL (150-450); RED BLOOD COUNT 4.58 10^6/uL (4.30-6.10); WHITE BLOOD COUNT 5.7 10^3/uL (4.0-10.0)
[2022-10-31 17:35] LABS: ALBUMIN 4.4 G/DL (3.2-5.2); ALKALINE PHOSPHATASE 102 U/L (46-116); ALT/SGPT 19 U/L (7.0-40); AST/SGOT 27 U/L (<34); BILIRUBIN,TOTAL 0.8 MG/DL (0.3-1.2); BLOOD UREA NITROGEN < 5 MG/DL (9-23); CALCIUM LEVEL 10.1 MG/DL (8.3-10.6); CARBON DIOXIDE LEVEL 28 MMOL/L (20-31); CHLORIDE LEVEL 95 MMOL/L (98-107); CHOLESTEROL LEVEL 212 MG/DL (<200); CHOLESTEROL RISK RATIO 1.83 (<5); CREATININE FOR GFR 0.62 MG/DL (0.70-1.30); GLOMERULAR FILTRATION RATE > 60.0 (>49); GLUCOSE, FASTING 84 MG/DL (74-106); HDL CHOLESTEROL 115.3 MG/DL (>40); LDL CHOLESTEROL 89.1 MG/DL (<100); NON-HDL-C 96.7 MG/DL; POTASSIUM SERUM 4.8 MMOL/L (3.5-5.1); SODIUM LEVEL 130 MMOL/L (136-145); THYROID STIMULATING HORMONE 1.109 uIU/ML (0.55-4.78); TOTAL 25(OH) VITAMIN D 70.8 NG/ML (20.0-100.0); TOTAL PROTEIN 7.4 G/DL (5.7-8.2); TRIGLYCERIDES LEVEL 38 MG/DL (<150)
== END ==
LOC: M LAB REF 16:16
PROVIDERS: ATTEND Nurse Practitioner Family
DX: I10 Essential (primary) hypertension (principal); J44.9 Chronic obstructive pulmonary disease, unspecified; Z68.21 Body mass index [BMI] 21.0-21.9, adult; E55.9 Vitamin D deficiency, unspecified

== ENCOUNTER → 2023-03-01 | Outpatient (CLI) | payer OTHER | LOC: M RAD 07:27 | PROVIDERS: ATTEND Internal Medicine Pulmonary Disease | DX: Z87.891 Personal history of nicotine dependence (principal) ==

== ENCOUNTER → 2023-03-01 | Outpatient (CLI) | payer OTHER | LOC: M LAB 07:29 | PROVIDERS: ATTEND Urology | DX: C61 Malignant neoplasm of prostate (principal) ==

== ENCOUNTER → 2023-06-05 | Outpatient (REF) | payer OTHER ==
[2023-06-05 13:12] LABS: BASO # 0.1 10^3/uL (0.0-0.2); BASO % 1.3 % (0.0-1.0); EOS # 0.2 10^3/uL (0.0-0.5); EOS % 2.7 % (0.0-3.0); HEMATOCRIT 40.6 % (42.0-52.0); HEMOGLOBIN 14.6 g/dl (13.5-17.5); LYMPH # 1.7 10^3/uL (1.5-5.0); LYMPH % 26.2 % (24.0-44.0); MEAN CORPUSCULAR HEMOGLOBIN 33.6 pg (27.0-33.0); MEAN CORPUSCULAR VOLUME 93.3 fl (80.0-96.0); MONO # 0.7 10^3/uL (0.0-0.8); MONO % 11.1 % (2.0-8.0); NEUTROPHILS # 3.7 10^3/uL (1.5-8.5); NEUTROPHILS % 58.4 % (36.0-66.0); PLATELET COUNT, AUTOMATED 241 10^3/uL (150-450); RED BLOOD COUNT 4.35 10^6/uL (4.30-6.10); WHITE BLOOD COUNT 6.4 10^3/uL (4.0-10.0)
[2023-06-05 13:25] LABS: ALBUMIN 4.2 G/DL (3.2-5.2); ALKALINE PHOSPHATASE 70 U/L (46-116); ALT/SGPT 32 U/L (7.0-40); AST/SGOT 38 U/L (<34); BILIRUBIN,DIRECT 0.4 MG/DL (<0.4); BILIRUBIN,TOTAL 0.9 MG/DL (0.3-1.2); BLOOD UREA NITROGEN < 5 MG/DL (9-23); CALCIUM LEVEL 9.1 MG/DL (8.3-10.6); CARBON DIOXIDE LEVEL 28 MMOL/L (20-31); CHLORIDE LEVEL 94 MMOL/L (98-107); CREATININE FOR GFR 0.73 MG/DL (0.70-1.30); GLOMERULAR FILTRATION RATE > 60.0 (>49); GLUCOSE, FASTING 75 MG/DL (74-106); MAGNESIUM LEVEL 1.9 MG/DL (1.8-2.4); POTASSIUM SERUM 4.3 MMOL/L (3.5-5.1); SODIUM LEVEL 126 MMOL/L (136-145); THYROID STIMULATING HORMONE 1.589 uIU/ML (0.55-4.78); TOTAL PROTEIN 7.1 G/DL (5.7-8.2)
== END ==
LOC: M LAB REF 12:18
PROVIDERS: ATTEND Nurse Practitioner Family
DX: R42 Dizziness and giddiness (principal); F10.90 Alcohol use, unspecified, uncomplicated; E87.1 Hypo-osmolality and hyponatremia

== ENCOUNTER → 2023-06-19 | Outpatient (CLI) | payer OTHER | LOC: M LAB 07:29 | PROVIDERS: ATTEND Urology | DX: C61 Malignant neoplasm of prostate (principal) ==

== ENCOUNTER → 2023-07-20 | Outpatient (CLI) | payer OTHER ==
[2023-07-20 12:13] LABS: BLOOD UREA NITROGEN < 5 MG/DL (9-23); CALCIUM LEVEL 9.2 MG/DL (8.3-10.6); CARBON DIOXIDE LEVEL 28 MMOL/L (20-31); CHLORIDE LEVEL 100 MMOL/L (98-107); CREATININE FOR GFR 0.78 MG/DL (0.70-1.30); GLOMERULAR FILTRATION RATE > 60.0 (>49); GLUCOSE, FASTING 77 MG/DL (74-106); POTASSIUM SERUM 4.2 MMOL/L (3.5-5.1); SODIUM LEVEL 134 MMOL/L (136-145)
== END ==
LOC: M PLALAB 08:08
PROVIDERS: ATTEND Nurse Practitioner Family
DX: E87.1 Hypo-osmolality and hyponatremia (principal)

== ENCOUNTER → 2023-07-20 | Outpatient (CLI) | payer OTHER | LOC: M PLAIMG 08:02 | PROVIDERS: ATTEND Internal Medicine Pulmonary Disease | DX: R91.8 Other nonspecific abnormal finding of lung field (principal) ==

== ENCOUNTER → 2023-12-08 | Outpatient (REF) | payer OTHER ==
[2023-12-08 14:05] LABS: ALBUMIN 4.5 G/DL (3.2-5.2); ALKALINE PHOSPHATASE 114 U/L (46-116); ALT/SGPT 27 U/L (7.0-40); AST/SGOT 50 U/L (<34); BILIRUBIN,DIRECT 0.3 MG/DL (<0.4); BILIRUBIN,TOTAL 0.8 MG/DL (0.3-1.2); BLOOD UREA NITROGEN 5 MG/DL (9-23); CALCIUM LEVEL 10.1 MG/DL (8.3-10.6); CARBON DIOXIDE LEVEL 29 MMOL/L (20-31); CHLORIDE LEVEL 101 MMOL/L (98-107); CHOLESTEROL LEVEL 208 MG/DL (<200); CHOLESTEROL RISK RATIO 1.85 (<5); CREATININE FOR GFR 0.68 MG/DL (0.70-1.30); GLOMERULAR FILTRATION RATE > 60.0 (>49); GLUCOSE, FASTING 138 MG/DL (74-106); HDL CHOLESTEROL 112.1 MG/DL (>40); LDL CHOLESTEROL 87.1 MG/DL (<100); NON-HDL-C 95.9 MG/DL; POTASSIUM SERUM 4.6 MMOL/L (3.5-5.1); SODIUM LEVEL 134 MMOL/L (136-145); TOTAL PROTEIN 7.7 G/DL (5.7-8.2); TRIGLYCERIDES LEVEL 44 MG/DL (<150)
== END ==
LOC: M LAB REF 12:45
PROVIDERS: ATTEND Nurse Practitioner Family
DX: E87.1 Hypo-osmolality and hyponatremia (principal); R74.01 Elevation of levels of liver transaminase levels; E78.5 Hyperlipidemia, unspecified

== ENCOUNTER → 2024-02-23 | Outpatient (CLI) | payer OTHER | LOC: M RAD 07:14 | PROVIDERS: ATTEND Nurse Practitioner Family | DX: R42 Dizziness and giddiness (principal) ==

== ENCOUNTER → 2024-03-22 | Outpatient (CLI) | payer OTHER | LOC: M RAD 07:02 | PROVIDERS: ATTEND Internal Medicine Pulmonary Disease | DX: R91.8 Other nonspecific abnormal finding of lung field (principal) ==

== ENCOUNTER → 2024-07-22 | Outpatient (CLI) | payer OTHER | LOC: M LAB 07:32 | PROVIDERS: ATTEND Urology | DX: C61 Malignant neoplasm of prostate (principal) ==

== ENCOUNTER → 2024-11-06 | Outpatient (CLI) | payer OTHER | LOC: M RAD 07:18 | PROVIDERS: ATTEND Internal Medicine Pulmonary Disease | DX: R91.8 Other nonspecific abnormal finding of lung field (principal) ==

== ENCOUNTER → 2024-11-12 | Outpatient (CLI) | payer OTHER | LOC: M RAD 09:07 | PROVIDERS: ATTEND Nurse Practitioner Family | DX: M54.6 Pain in thoracic spine (principal); M47.814 Spondylosis without myelopathy or radiculopathy, thoracic region ==